=== PATIENT | male | born 1960 | race Caucasian/White ===

== ENCOUNTER 2024-07-16 09:15 | Outpatient (AMB) | payer MEDICARE, SELFPAY ==
--- NOTE | 2024-07-16 09:16 | A.OFFVIS_ITS ---
Vital Signs 07/16/24 09:34 Height 5 ft 8.5 in Weight 160 lb 2 oz BMI 24.0 BP 132/68 Blood Pressure Location Rt brachial Position Sitting Respiration 16 Pulse 73 Pulse Source Pulse Oximeter Pulse Oximetry (%) 98 Oxygen Delivery Method Room Air Intake Visit Reasons: Tremors /seizures Intake Note: Pt presents to the office for new patient consultation for a tremor that started 5 months ago. Sports Complex Attendant Required: No Allergies No Known Allergies Allergy (Verified 07/16/24 09:28) Medication List - Last Reconciled 07/16/24 by Jen Michel MD carbidopa-levodopa 10-100 mg (Sinemet) 1 tab PO TID clopidogrel (Plavix) 75 mg PO DAILY cyanocobalamin (vitamin B-12) 1,000 mcg PO DAILY gabapentin 100 mg PO TID labetalol 200 mg PO BID levetiracetam (Keppra) 500 mg PO BID lisinopril 10 mg PO DAILY metformin 500 mg PO BID simvastatin 40 mg PO DAILY HPI Comments Details: 64y/o male comes for opinion regarding his diagnosis of parkinsons disease.He is accompanied by his . Both the patient and his are poor historians. According to the patient he was diagnosed with Parkinsons about 20 years ago . He started having tremors in his hands.He has h/o bipolar disorder, chronic back pain, opiod dependance CKD HTN CAD Diabetes, exposure to multiple neuroleptics. He was admitted at [facility] on 09/2023 for weakness - was supected to have parkinsons, started on carbidopa/levodopa which helped his tremors. He was also started on keppra for possible seizures. No furthe rhistory was obtainable. He rpeorts fh/o tremors and had a diagnosed of familial tremors until 09/2023 He is not sure if he is taking quetiapine now He denies seizure like episodes. He denies speech issues. But reports trouble walking, feeling off balance and forgetfullness. 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 CAD (coronary artery disease) Shortness of breath Ascending aorta dilatation Thrombosis of vein CKD (chronic kidney disease) Surgical History H/O cardiac catheterization History of appendectomy Previous back surgery H/O heart surgery Family History Father Stroke Social History Alcohol intake: never Patient Tobacco Use Status: Never used Tobacco Physical Exam Vital Signs: Last Vital Signs Pulse 73 07/16/24 09:34 Resp 16 07/16/24 09:34 BP 132/68 07/16/24 09:34 Pulse Ox 98 07/16/24 09:34 Oxygen Delivery Method Room Air 07/16/24 09:34 BMI result Body Mass Index 24.0 Const General: cooperative Nutritional Appearance: average body habitus Orientation/consciousness: patient oriented x3 Eyes Pupils: Equal, round and reactive pupils present Neck Neck: Yes no meningeal signs Neuro Other: moderate to high amplitude tremors - rest postural in UE and LE. Mild decreased blink Normal voice FFM and foot taps normal No cogwheel rigidity Gait- with cane normal stride mild wide base , normal posture. General: patient oriented x3 and no meningeal signs Cranial nerves: Yes Equal, round and reactive pupils present, Yes Bilaterally intact EOM present, Yes Nystagmus not present, Yes Normal facial strength present and Yes Midline tongue present Motor exam (neuro): 5/5 motor strength present throughout and Normal motor muscle tone present throughout Deep tendon reflexes (DTR's): Right triceps reflex intensity grade: 1+, Left triceps reflex intensity grade: 1+, Rt Biceps (C5, C6): 1+, Left biceps reflex intensity grade: 1+, Right brachioradialis reflex intensity grade: 1+, Left brachioradialis reflex intensity grade: 1+, Right patellar reflex intensity grade: 1+ and Left patellar reflex intensity grade: 1+ Coordination: [id number] test normal Assessment & Plan Assessment & Plan (1) Coarse tremors: Comment: / drug induced parkinsonism, familial tremors Code(s): G25.2 - Other specified forms of tremor Category: Medical Plan No clear h/o seizures. I will evaluate him with EEG , MRI brain I will trial him on primidone 50mg tid continue gabapentin 100mg tid sinemet 25/100 tid keppra 500mg bid Orders: Orders EEG electroencephalogram Today G25.2 - Other specified forms of tremor, R56.9 - Unspecified convulsions MR head/brain wo con Today R56.9 - Unspecified convulsions Medications: New primidone 50 mg PO TID 90 tabs 3RF Coding Level of Care Code New Pt Level 4 (05990) Complex EM visit Add On G2211 Diagnoses Coarse tremors G25.2
[2024-07-16 09:34] VITALS: BP 132/68; PULSE 73; RESP 16; O2SAT 98; BMI 24.0
== END 2024-07-16 10:14 | disposition home or self-care (01) ==
PROVIDERS: PCP Family Medicine; Visit Provider Psychiatry & Neurology Neurology
DX: G25.2 Other specified forms of tremor (principal)
CPT/HCPCS: 99204; G2211

== ENCOUNTER → 2024-07-16 09:15 | Outpatient (BNVA) | payer MEDICARE, SELFPAY | PROVIDERS: PCP Family Medicine; Visit Provider Psychiatry & Neurology Neurology | DX: G25.2 Other specified forms of tremor (principal); I12.9 Hypertensive chronic kidney disease with stage 1 through stage 4 chronic kidney disease, or unspecified chronic kidney disease; N18.9 Chronic kidney disease, unspecified; I25.10 Atherosclerotic heart disease of native coronary artery without angina pectoris; R56.9 Unspecified convulsions; M54.50 Low back pain, unspecified | CPT/HCPCS: 99202 ==

== ENCOUNTER 2024-10-07 14:21 | Outpatient (AMB) | payer MEDICARE, SELFPAY ==
[2024-10-07 14:22] VITALS: BMI 24.3
--- NOTE | 2024-10-07 14:22 | MHC.OFFVIS ---
Vital Signs 10/07/24 14:22 Height 5 ft 8.5 in Weight 162 lb BMI 24.3 Intake Visit Reasons: Follow up Parkinson's(ok Per ) Intake Note: patient presents for follow up parkinsons Allergies No Known Allergies Allergy (Verified 10/07/24 14:25) Medication List - Last Reconciled 10/07/24 by Jen Michel MD benztropine 0.5 mg PO DAILY carbidopa-levodopa 10-100 mg (Sinemet) 1 tab PO TID clopidogrel (Plavix) 75 mg PO DAILY cyanocobalamin (vitamin B-12) 1,000 mcg PO DAILY deutetrabenazine (Austedo) 6 mg PO DAILY gabapentin 100 mg PO TID labetalol 200 mg PO BID levetiracetam 750 mg PO BID lisinopril 10 mg PO DAILY metformin 500 mg PO BID primidone 50 mg PO TID simvastatin 40 mg PO DAILY HPI Comments Details: 64y/o male comes for F/u regarding his diagnosis of parkinsons disease.He is accompanied by his . He had another episode of seizure 1 month ago.His MRI brain was normal Mild decrease in tremors He had EEG at [facility] - i do no have the report yet. History from initial visit- Both the patient and his are poor historians. According to the patient he was diagnosed with Parkinsons about 20 years ago . He started having tremors in his hands.He has h/o bipolar disorder, chronic back pain, opiod dependance CKD HTN CAD Diabetes, exposure to multiple neuroleptics. He was admitted at [facility] on 09/2023 for weakness - was supected to have parkinsons, started on carbidopa/levodopa which helped his tremors. He was also started on keppra for possible seizures. No further history was obtainable. He reports fh/o tremors and had a diagnosed of familial tremors until 09/2023 He is not sure if he is taking quetiapine now He denies seizure like episodes. He denies speech issues. But reports trouble walking, feeling off balance and forgetfullness. 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 CAD (coronary artery disease) Shortness of breath Ascending aorta dilatation Thrombosis of vein CKD (chronic kidney disease) Surgical History H/O cardiac catheterization History of appendectomy Previous back surgery H/O heart surgery Family History Father Stroke Social History Alcohol intake: never Patient Tobacco Use Status: Never used Tobacco Physical Exam Vital Signs: BMI result Body Mass Index 24.3 Const General: cooperative Nutritional Appearance: average body habitus Orientation/consciousness: patient oriented x3 Eyes Pupils: Equal, round and reactive pupils present Neck Neck: Yes no meningeal signs Neuro Other: moderate to high amplitude tremors - rest postural in UE and LE. Mild decreased blink Normal voice FFM and foot taps normal No cogwheel rigidity Gait- with cane normal stride mild wide base , normal posture. General: patient oriented x3 and no meningeal signs Cranial nerves: Yes Equal, round and reactive pupils present, Yes Bilaterally intact EOM present, Yes Nystagmus not present, Yes Normal facial strength present and Yes Midline tongue present Motor exam (neuro): 5/5 motor strength present throughout and Normal motor muscle tone present throughout Deep tendon reflexes (DTR's): Right triceps reflex intensity grade: 1+, Left triceps reflex intensity grade: 1+, Rt Biceps (C5, C6): 1+, Left biceps reflex intensity grade: 1+, Right brachioradialis reflex intensity grade: 1+, Left brachioradialis reflex intensity grade: 1+, Right patellar reflex intensity grade: 1+ and Left patellar reflex intensity grade: 1+ Coordination: [id number] test normal Assessment & Plan Assessment & Plan (1) Coarse tremors: Comment: / drug induced parkinsonism, familial tremors Code(s): G25.2 - Other specified forms of tremor Category: Medical (2) Seizures: Code(s): R56.9 - Unspecified convulsions Category: Medical Plan MRI brain - was normal Primidone 50mg tid Continue gabapentin 100mg tid Sinemet 25/100 tid Increase keppra 750mg bid He was started on AUstedo by Dr. Vergara but it costs 1400 for him . He started 2 weeks ago but does not want to refill Medications: Changed From levetiracetam (Keppra) 500 mg PO BID To levetiracetam 750 mg PO BID 60 tabs 6RF Coding Level of Care Code Est Pt Level 4 (09696) Diagnoses Coarse tremors G25.2 Seizures R56.9
== END 2024-10-07 14:55 | disposition home or self-care (01) ==
PROVIDERS: PCP Family Medicine; Visit Provider Psychiatry & Neurology Neurology
DX: G25.2 Other specified forms of tremor (principal); R56.9 Unspecified convulsions
CPT/HCPCS: 99214

== ENCOUNTER → 2024-10-07 14:21 | Outpatient (BNVA) | payer MEDICARE, SELFPAY | PROVIDERS: PCP Family Medicine; Visit Provider Psychiatry & Neurology Neurology | DX: G25.2 Other specified forms of tremor (principal); R56.9 Unspecified convulsions | CPT/HCPCS: 99212 ==

== ENCOUNTER 2024-12-24 09:48 | Outpatient (AMB) | payer MEDICARE, SELFPAY ==
[2024-12-24 09:54] VITALS: BMI 24.9
--- NOTE | 2024-12-24 09:54 | A.OFFVIS_ITS ---
Vital Signs 12/24/24 09:54 Height 5 ft 8.5 in Weight 166 lb BMI 24.9 Intake Visit Reasons: Follow up Parkinson's Intake Note: PATIENT PRESENTS FOR FOLLOW UP Allergies No Known Allergies Allergy (Verified 12/24/24 09:56) Medication List - Last Reconciled 12/24/24 by Jen Michel MD carbidopa-levodopa 10-100 mg (Sinemet) 1 tab PO TID clopidogrel (Plavix) 75 mg PO DAILY cyanocobalamin (vitamin B-12) 1,000 mcg PO DAILY gabapentin 100 mg PO TID labetalol 200 mg PO BID levetiracetam 750 mg PO BID lisinopril 10 mg PO DAILY metformin 500 mg PO BID simvastatin 40 mg PO DAILY HPI Comments Details: 64y/o male comes for F/u regarding his diagnosis of parkinsons disease.He is accompanied by his .he used to be on AUstedo which helped his tremors but his insurance did not cover so he stopped and his tremors have increased. No seizures visit .His MRI brain was normal History from initial visit- Both the patient and his are poor historians. According to the patient he was diagnosed with Parkinsons about 20 years ago . He started having tremors in his hands.He has h/o bipolar disorder, chronic back pain, opiod dependance CKD HTN CAD Diabetes, exposure to multiple neuroleptics. He was admitted at [facility] on 09/2023 for weakness - was supected to have parkinsons, started on carbidopa/levodopa which helped his tremors. He was also started on keppra for possible seizures. No further history was obtainable. He reports fh/o tremors and had a diagnosed of familial tremors until 09/2023 He is not sure if he is taking quetiapine now He denies seizure like episodes. He denies speech issues. But reports trouble walking, feeling off balance and forgetfullness. 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 stenosis 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 CAD (coronary artery disease) Shortness of breath Ascending aorta dilatation Thrombosis of vein CKD (chronic kidney disease) Surgical History H/O cardiac catheterization History of appendectomy Previous back surgery H/O heart surgery Family History Father Stroke Social History Alcohol intake: never Patient Tobacco Use Status: Never used Tobacco Physical Exam Vital Signs: BMI result Body Mass Index 24.9 Const General: cooperative Nutritional Appearance: average body habitus Orientation/consciousness: patient oriented x3 Eyes Pupils: Equal, round and reactive pupils present Neck Neck: Yes no meningeal signs Neuro Other: moderate to high amplitude tremors - rest postural in UE and LE. Mild decreased blink Normal voice FFM and foot taps normal No cogwheel rigidity Gait- with cane normal stride mild wide base , normal posture. General: patient oriented x3 and no meningeal signs Cranial nerves: Yes Equal, round and reactive pupils present, Yes Bilaterally intact EOM present, Yes Nystagmus not present, Yes Normal facial strength present and Yes Midline tongue present Motor exam (neuro): 5/5 motor strength present throughout and Normal motor muscle tone present throughout Coordination: [id number] test normal Assessment & Plan Assessment & Plan (1) Coarse tremors: Comment: / drug induced parkinsonism, familial tremors Code(s): G25.2 - Other specified forms of tremor Category: Medical (2) Seizures: Code(s): R56.9 - Unspecified convulsions Category: Medical Plan MRI brain - was normal Primidone 50mg tid Continue gabapentin 100mg tid Sinemet 25/100 tid Continue keppra 750mg bid Restart Austedo 6 mg bid Medications: New deutetrabenazine (Austedo) 6 mg PO BID 60 tabs 6RF Discontinued primidone Discontinued Reason: Patient no longer taking 50 mg PO TID 90 tabs 3RF Coding Level of Care Code Est Pt Level 4 (55334) Complex EM visit Add On G2211 Diagnoses Coarse tremors G25.2 Seizures R56.9
--- OUTSIDE RECORDS SUMMARY | 2024-12-24 12:51 | XMS_ITS | Data Portability ---
Author Organization [place] [facility], Allergy Address [address] [place] [id number] Care Team Providers Care College Specialist Name Role Phone DANIEL RAMIRES Primary Care Provider Assessment Encounter Date Assessment Date Assessment LastModified by Organization Details LastModified Time 06/23/2024 06/23/2024 Patient with 6 months of loss of smell and taste. Examination shows septal deviation to the left side and bilateral hand tremors. We discussed that the differential diagnosis includes COVID-19 infection that was occult and possibly loss of smell and taste due to Parkinson's disease. I have suggested he continue the nasal steroids Unfortunately I do not think there is much that we can do to get his smell and taste back. He can try smelling angel, eucalyptus and peppermint oil 3 times daily for 15 minutes at a time. He had a CT of the head in July which did not show any sinus disease. He believes he had additional studies at [facility] in [place]. However, will be called over there there were no head or sinus x-rays. He will check with his PCP. I would consider CT scan of the sinuses if no improvement with smell retraining over the next 2 months. [email or web address] Not available 06/23/2024 10:17:40 Plan of Treatment Reminders Order Date Submit Date Provider Last Modified By Organization Details Last Modified Time Details Appointments None record ed. Lab None record ed. Referral None record ed. Procedures None record ed. Surgeries None record ed. Imaging None record ed. Medication Orders None record ed. Patient TargetsNo targets recorded. Patient InstructionsNo instructions recorded. Reason for Referral None Reported. Results Created Date Observation Date Name Description Value Unit Range Abnormal Flag Note LastModifiedBy Organization Detail LastModifiedTime 06/25/2008/28/2023 CT, head + brain , w/o contr ast No observ ation record ed. [email or web address] Not Available 11/2023 13:53:07 06/25/2008/21/2023 CT, head + brain , w/o contr ast No observ ation record ed. [email or web address] Not Available 11/2023 13:54:50 Result Notes None recorded. Problems Name Problem SNOMED Code Status Onset Date Resolution Date Notes Provider Name and Address Organization Details Recorded Time Loss of sense of smell 39417670 Active 024 STEW JERONIMO MD [address] [place] [address], [place], [phone] , [facility] 06/23/2024 09:53:13 Parkinson 's disease 52650398 Active 024 STEW JERONIMO MD [address] [place] [address], [place], [phone] , [facility] 06/23/2024 09:53:17 Problem Notes None recorded. Procedures Surgical History None recorded. Imaging Results Imaging Date Name Status LastModified by Organiz ation Details LastModified Time 08/28/2023 CT, head + brain, w/o contrast completed Information not available 06/25/2024 13:53:07 08/21/2023 CT, head + brain, w/o contrast completed Information not available 06/25/2024 13:54:50 Procedure Notes None recorded. Medical Equipment None Reported. Medications Name Sig Start Date Stop Date Status Note LastModified by Organization Details LastModified Time metformin 500 mg tablet TAKE 2 TABLETS BY MOUTH TWICE A DAY WITH MEALS active Not Available Not Available No t Available labetalol 200 mg tablet TAKE 2 TABLETS BY MOUTH TWICE A DAY active Not Available Not Available No t Available levetiraceta m 500 mg tablet TAKE 1 TABLET BY MOUTH TWICE A DAY active Not Available Not Available No t Available lisinopril 20 mg tablet TAKE 1 TABLET BY MOUTH EVERY DAY active Not Available Not Available No t Available famotidine 40 mg tablet TAKE 1 TABLET BY MOUTH EVERY DAY active Not Available Not Available No t Available clopidogrel 75 mg tablet TAKE 1 TABLET BY MOUTH EVERY DAY active Not Available Not Available No t Available chlorthalido ne 25 mg tablet TAKE 1/2 TABLET BY MOUTH DAILY active Not Available Not Available Not Available allopurinol 100 mg tablet TAKE 1 TABLET DAILY active Not Available Not Available No t Available omeprazole 40 mg capsule,hayes yed release TAKE 1 CAPSULE BY MOUTH EVERY DAY active Not Available Not Available No t Available butalbital-a cetaminophen -caffeine 50 mg-325 mg-40 mg tablet TAKE 2 TABLETS BY MOUTH EVERY 4 HOURS NEEDED. DO NOT EXCEED 6 TABLETS DAILY. active Not Available Not Available No t Available simvastatin 40 mg tablet TAKE 1 TABLET BY MOUTH EVERYDAY AT BEDTIME active Not Available Not Available No t Available famotidine 20 mg tablet TAKE 1 TABLET BY MOUTH TWICE A DAY active Not Available Not Available No t Available magnesium oxide 400 mg (241.3 mg magnesium) tablet TAKE 1 TABLET BY MOUTH 2 TIMES DAILY FOR 360 DAYS. active Not Available Not Available No t Available meclizine 25 mg tablet TAKE 1 TABLET ORALLY EVERY 8 HOURS NEEDED FOR DIZZINESS/V ERTIGO. MAY CAUSE DROWSINESS active Not Available Not Available N ot Available amlodipine 10 mg tablet TAKE 1 TABLET BY MOUTH EVERY DAY active Not Available Not Available No t Available lisinopril 10 mg tablet TAKE 1 TABLET BY MOUTH EVERY DAY active Not Available Not Available No t Available carbidopa 10 mg-levodopa 100 mg tablet TAKE 1 TABLET BY MOUTH THREE TIMES A DAY active Not Available Not Available Not Available lisinopril 30 mg tablet TAKE 1 TABLET BY MOUTH EVERY DAY active Not Available Not Available No t Available mupirocin 2 % topical ointment APPLY TO AFFECTED AREA TWICE A DAY active Not Available Not Available No t Available gabapentin 100 mg capsule TAKE 1 CAPSULE BY MOUTH THREE TIMES A DAY active Not Available Not Available Not Available colchicine 0.6 mg tablet TAKE 1 TABLET BY MOUTH EVERY DAY active Not Available Not Available No t Available perphenazine 8 mg tablet TAKE 1 TABLET BY MOUTH EVERY DAY IN THE EVENING active Not Available Not Available No t Available lisinopril 40 mg tablet TAKE 1 TABLET BY MOUTH EVERY DAY active Not Available Not Available No t Available fluticasone propionate 50 mcg/actuatio n nasal spray,suspen renee SPRAY 2 SPRAYS INTO EACH NOSTRIL EVERY DAY active Not Available Not Available No t Available Vitamin B-12 1,000 mcg tablet TAKE 1 TABLET BY MOUTH EVERY DAY active Not Available Not Available No t Available Januvia 50 mg tablet TAKE 1 TABLET BY MOUTH EVERY DAY active Not Available Not Available No t Available quetiapine ER 50 mg tablet,exten ded release 24 hr TAKE 1 TABLET BY MOUTH EVERY DAY IN THE EVENING active Not Available Not Available No t Available quetiapine ER 150 mg tablet,exten ded release 24 hr TAKE 1 TABLET BY MOUTH EVERY DAY IN THE EVENING active Not Available Not Available No t Available Vitals Date Recorded Body height Body mass index (BMI) Body weight Provider Name and Address Organization Details Last Updated DateTime 06/23/2024 172.72 cm 23.7 kg/m2 23698.41 g Jm Cheung [place] [facility] 06/23/2024 09:37:02 Social History None recorded. Functional Status None recorded. Mental Status None recorded. Family History Nothing Reported. Medical History Condition Response Diabetes Y Anxiety Y Migraines Y Hypertension Y Past Encounters Encounter ID Performer Location Encounter Start Date Encounter Closed Date Diagnosis/Indication Diagnosis SNOMED-CT Code Diagnosis ICD10 Code Diagnosis Note [id number] STEW JERONIMO MD [facility] [address] [phone] 06/23/2024 08:52:57 06/23/2024 10:20:29 Loss of sense of smell 95079475 R43.0 Parkinson's disease 4904 9000 G20.A1 Health Concerns Section Related Observation LastModified by Organization Detai ls LastModified Time None Recorded Concern Status LastModified by Organization Details LastModified Time None Recorded Advance Directives Directive None Recorded Payers Encounter Date Sequence Insurance Name Policy Number Policy Blanc Covered Member ID Blanc Member ID Guarantor Name 06/23/2024 2 [place] [id number] Rock Lucas [id number] Rock Lucas 06/23/2024 1 [place] [employer] Rock Lucas [id number] Rock Lucas Notes Date Note Type Note Provider Name and Address Organization Details Recorded Time 06/23/2024 text/html Patient reports 6 months of loss of smell and taste. He reports his had COVID-19 about 9 months ago. He denies having any infection himself. He does have a history of Parkinson's disease and diabetes. No CP or SOB STEW BYRD MD [address] [place] [address], [place], [phone], [facility] - [facility] 06/23/2024 10:19:19
--- OUTSIDE RECORDS SUMMARY | 2024-12-24 12:51 | XMS_ITS | Clinical Summary ---
Author Organization [facility] Address [address] [place] [address] Care Team Providers Care Cosmetic Chemist Name Role Phone Unavailable Primary Care Provider Unavailabl e Allergies Active Allergy Reactions Criticality Noted Date Comments Ceftriaxone 09/19/2022 Other reaction(s): Dizziness Hydromorphone 03/04/2018 sweating and hives nausous Oxytocin 10/13/2021 Penicillins 12/11/2011 Medications Medication Sig Dispensed Refills Start Date End Date Status labetalol (NORMODYNE) 200 MG tablet Take 2 tablets (400 mg total) by mouth 2 (two) times a day. 0 09/13/2022 Active tadalafil (CIALIS) 5 MG tablet TAKE ONE TABLET BY MOUTH EVERY DAY 0 07/05/2022 Active omeprazole (PriLOSEC) 40 MG capsuleIndications:Bar rett's Esophagus,FOR 15 DAYS ONLY Take 1 capsule (40 mg total) by mouth daily. 0 07/26/2022 Active amLODIPine (NORVASC) tablet 10 mg Take 1 tablet (10 mg total) by mouth daily. 0 07/02/2022 Active chlorthalidone (HYGROTON) 25 MG tablet TAKE 1/2 TABLET BY MOUTH DAILY 0 08/19/2022 Active gabapentin (NEURONTIN) 100 MG capsule Take 1 capsule (100 mg total) by mouth 3 (three) times a day. 0 09/19/2022 Active lisinopril (PRINIVIL,ZESTRIL) tablet 20 mg Take 1 tablet (20 mg total) by mouth daily. 0 08/15/2022 Active metFORMIN (GLUCOPHAGE) tablet 500 mg TAKES 2 TABLETS IN THE AM 1 TABLET AT 4PM 0 08/13/2022 Active risperiDONE (RisperDAL) 0.5 MG tablet Take 1 tablet (0.5 mg total) by mouth daily. 0 Active propranolol (INDERAL) 40 MG tablet Take 1 tablet (40 mg total) by mouth 2 (two) times a day. 0 Active escitalopram (LEXAPRO) 20 MG tablet Take 1 tablet (20 mg total) by mouth daily. 0 Active clonazePAM (KlonoPIN) 1 MG tablet Take 1 tablet (1 mg total) by mouth 3 (three) times a day as needed for anxiety. 0 Active Active Problems Problem Noted Date Diagnosed Date Stroke, small vessel 09/20/2022 TIA (transient ischemic attack) 09/19/2022 Dizziness 09/19/2022 Family History Medical History Relation Name Comments No Sig Med Hx Mother Relation Name Status Comments Father Mother Alive Social History Tobacco Use Types Packs/Day Years Used Date Smoking Tobacco: Never Smokeless Tobacco: Never Tobacco Cessation:Counseling Given: Not Answered Alcohol Use Standard Drinks/Week Comments Not Currently 0 (1 standard drink = 0.6 oz pur e alcohol) Sex and Gender Information Value Date Recorded Sex Assigned at Male 09/19/2022 12:56 PM EDT Gender Identity Not on file Sexual Orientation Not on file Job Start Date Occupation Industry Not on file Not on file Not on file Last Filed Vital Signs Vital Sign Reading Time Taken Comments Blood Pressure 134/113 09/22/2022 9:47 AM EDT Pulse 102 09/22/2022 9:47 AM EDT Temperature 36.7 ??C (98 ??F) 09/22/2022 4:37 AM EDT Respiratory Rate 18 09/22/2022 4:37 AM EDT Oxygen Saturation 96% 09/22/2022 4:37 AM EDT Inhaled Oxygen Concentration - - Weight 87.3 kg (192 lb 6.4 oz) 09/19/2022 7:25 P M EDT Height 177.8 cm (5' 10 ) 09/19/2022 7:25 PM EDT Body Mass Index 27.61 09/19/2022 7:25 PM EDT Plan of Treatment Health Maintenance Due Date Last Done Comments Hepatitis C Screening 1959 Depression Screening 1971 BMI Counseling 1977 Preventative Health Evaluation 1977 Colon Cancer Screening (Colonoscopy) 2004 Shingrix-Zoster Vaccine (1 of 2) 2009 DTap / Tdap / Td (2 - Tdap) 12/13/2021 12/13/2011 Fall Risk Assessment 2024 Pneumococcal Vaccine (1 of 1 - PCV) 2024 COVID-19 Vaccine (2023- season) 2024 09/06/2021, 02/09/2021, 01/19/2021 Influenza Vaccine (#1) 2024 , 09/25/2020, 08/04/2019, Additional history exists RSV Adult > 60+ Yrs or (1 - 1-dose 75+ series) 2034 Hepatitis B Vaccines Aged Out No long er eligible based on patient's age to complete this topic Pneumococcal Vaccine Aged Out No long er eligible based on patient's age to complete this topic RSV Ped < 20 months Aged Out No longe r eligible based on patient's age to complete this topic Advance Directives For more information, please contact: [phone] Latest Code Status on File Code Status Date Activated Date Inactivated Comments Full Code 09/19/2022 2:37 PM 09/23/2022 12:01 AM Th is code status was ascertained in the following way: As per discussion with patient .
--- OUTSIDE RECORDS SUMMARY | 2024-12-24 12:52 | XMS_ITS | Clinical Summary ---
Author Organization [facility] Address [address] [facility] [address] [place] [address] Phone Care Team Providers Care Mannequin Molder Name Role Phone Yvette Colon MD Primary Care Provider Unavaila ble Allergies Active Allergy Reactions Criticality Noted Date Comments Benztropine 12/06/2022 Ceftriaxone 09/25/2022 Hydromorphone 09/25/2022 Lamotrigine 12/06/2022 Oxytocin 10/13/2021 Penicillins 12/11/2011 Medications carbidopa-levod opa (SINEMET) 10-100 MG per tablet Take 1 tablet by mouth in the morning and 1 tablet at noon and 1 tablet in the evening. Active clopidogrel (PLAVIX) 75 MG tablet Take 75 mg by mouth 1 (one) time each day Active cyanocobalamin (VITAMIN B-12) 1000 MCG tablet Take 1,000 mcg by mouth 1 (one) time each day Active gabapentin (NEURONTIN) 100 MG capsule Take 1 capsule by mouth in the morning and 1 capsule at noon and 1 capsule in the evening. 09/19/2022 Active labetalol (NORMODYNE) 200 MG tablet Take 2 tablets by mouth in the morning and 2 tablets in the evening. 09/13/2022 Active levETIRAcetam (KEPPRA) 500 MG tablet Take 1 tablet by mouth in the morning and 1 tablet in the evening. 11/19/2023 Active metFORMIN (GLUCOPHAGE) 500 MG tablet Take 500 mg by mouth 1 (one) time each day with dinner 08/13/2022 Active omeprazole (PriLOSEC) [address] capsule Take 40 mg by mouth 07/26/2022 Active allopurinol (ZYLOPRIM) 100 MG tablet Take 100 mg by mouth 1 (one) time each day Active lisinopril 40 MG tablet Take 40 mg by mouth 1 (one) time each day Active primidone (MYSOLINE) 50 MG tablet Take 50 mg by mouth in the morning and 50 mg in the evening and 50 mg before bedtime. Active perphenazine 8 MG tablet Take 8 mg by mouth 1 (one) time each day with dinner Active benztropine (COGENTIN) 0.5 MG tablet Take 0.5 mg by mouth 1 (one) time each day with dinner Active atorvastatin (LIPITOR) 40 MG tablet Take 40 mg by mouth 1 (one) time each day with dinner Active magnesium oxide (MAG-OX) 400 MG tablet Take 400 mg by mouth 12/24/2023 12/18/19 25 Active Problems Problem Noted Date Diagnosed Date Chronic kidney disease, stage 2 (mild) Cerebral atherosclerosis 09/25/2022 Type 2 diabetes mellitus 11/25/2021 TIA 11/25/2021 Parkinson's disease 11/25/2021 Orthostatic hypotension 11/25/2021 Migraine, not intractable, without status migrai nosus 11/25/2021 care home current use of oral hypoglycemic drug 11/25/2021 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 11/25/2021 Hyperlipidemia 11/25/2021 History of falling 11/25/2021 Gastro-esophageal reflux disease without esophag itis 11/25/2021 Essential hypertension 11/25/2021 Depressive disorder 11/25/2021 Nonruptured cerebral aneurysm 11/25/2021 Benign prostatic hyperplasia without lower urinary tract symptom 11/25/2021 Anxiety disorder 11/25/2021 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 11/25/2021 Encounters Date Type Department Care Team Description 11/27/2024 Orders Only [facility] [address] [place] [id number] Bipin Newberry MD Chronic kidney disease, stage 2 (mild); Other acute kidney failure (HCC) 10/30/2024 Orders Only [facility] [address] [place] [id number] Bipin Newberry MD Chronic kidney disease, stage 2 (mild); Other acute kidney failure (HCC) 10/02/2024 Orders Only [facility] [address] [facility] [address] [place] [phone] Bipin Newberry MD Chronic kidney disease, stage 2 (mild); Other acute kidney failure (HCC) from Last 3 Months Family History Medical History Relation Comments Heart disease Mother Hypertension Mother Relation Status Comments Mother Social History Tobacco Use Types Packs/Day Years Used Date Smoking Tobacco: Never Smokeless Tobacco: Never Tobacco Cessation:Counseling Given: Not Answered Alcohol Use Standard Drinks/Week Comments Never 0 (1 standard drink = 0.6 oz pur e alcohol) Sex and Gender Information Value Date Recorded Sex Assigned at Not on file Legal Sex Male 10:57 AM EST Gender Identity Not on file Sexual Orientation Not on file Last Filed Vital Signs Vital Sign Reading Time Taken Comments Blood Pressure 128/90 09/07/2024 10:34 AM EDT Pulse 69 09/07/2024 10:34 AM EDT Temperature - - Respiratory Rate - - Oxygen Saturation 98% 09/07/2024 10:34 AM EDT Inhaled Oxygen Concentration - - Weight 76.7 kg (169 lb) 09/07/2024 10:34 AM EDT Height - - Body Mass Index - - Plan of Treatment Upcoming Encounters Date Type Department Care Team (Late st Contact Info) Description 03/02/2025 1:30 PM EDT Office Visit [facility] [address] [facility] [address] [place] [phone] Bipin Newberry MD [address] [facility] [address] [place] [id number] Health Maintenance Due Date Last Done Comments Colorectal Cancer Screening: Annual FOBT 2008 Colorectal Cancer Screening: Colonoscopy 2008 Colorectal Cancer Screening: Sigmoidoscopy 2008 Hepatitis B Vaccine (1 of 3 - Risk 3-dose series) 2019 Diabetes: Ophthalmology Exam 01/21/2024 Diabetes: Pedal Pulse Checked 01/21/2024 Diabetes: Sensory Foot Exam 01/21/2024 Diabetes: Visual Foot Exam 01/21/2024 Pneumococcal Vaccine: 65+ Ye ars (2 of 2 - PCV) 02/19/2024 05/13/2024, 02/18/2023 Pneumococcal Vaccine: Pediat rics (0 to 5 Years) and At-Risk Patients (6 to 64 Years) (2 of 2 - PCV) 02/19/2024 05/13/2024, 02/18/2023 Diabetes: Hemoglobin A1C 08/13/2024 024, 01/10/2024, 09/19/2022 Influenza Vaccine Completed 08/13/2024, , 09/25/2020, Additional history exists Insurance MEDICARE [facility] MEDICARE [facility] Care Teams Mannequin Molder Relationship Specialty Start Date End Date Yvette Colon MD PCP - General Family Medicine 09/07/24
--- OUTSIDE RECORDS SUMMARY | 2024-12-24 12:52 | XMS_ITS | Clinical Summary ---
Author Organization [facility] Address [address] [place] [address] Phone Care Team Providers Care M[employer]asting Name Role Phone Juliette Barbosamana Primary Care Provider [phone] Allergies Active Allergy Reactions Criticality Noted Date Comments Ceftriaxone 09/19/2022 Other reaction(s): Dizziness Hydromorphone 03/04/2018 sweating and hives nausous Oxytocin 10/13/2021 Penicillins 12/11/2011 Medications Medication Sig Dispensed Refills Start Date End Date Status gabapentin (NEURONTIN) 100 mg capsule Take 1 capsule (100 mg total) by mouth 3 times daily. 09/19/2022 Active magnesium oxide (MAG-OX) 400 mg (241.3 elemental magnesium) tablet TAKE 1 TABLET BY MOUTH 2 TIMES DAILY FOR 360 DAYS. 180 tablet 10/26/2024 Active Additional Information Patient not taking.Reported on 11/10/2024 metFORMIN (GLUCOPHAGE) 500 mg tablet TAKE 2 TABLETS BY MOUTH TWICE A DAY WITH MEALS 360 tablet 11/10/2024 Active clopidogreL (PLAVIX) 75 mg tabletIndications:Mi xed hyperlipidemia Take 1 tablet (75 mg total) by mouth 1 (one) time each day. Active cyanocobalamin (VITAMIN B-12) 1,000 mcg tablet Take 1 tablet (1,000 mcg total) by mouth 1 (one) time each day. Active levETIRAcetam (KEPPRA) 500 mg tablet Take 1 tablet (500 mg total) by mouth 2 (two) times a day. Active famotidine (PEPCID) 40 mg tablet Take 1 tablet (40 mg total) by mouth 1 (one) time each day. 10/24/2024 Active labetaloL (NORMODYNE) 200 mg tabletIndications:Pr imary hypertension Take 1 tablet (200 mg total) by mouth 2 (two) times a day. 180 each 1 11/10/2024 5 Active lisinopril (PRINIVIL,ZESTRIL) 40 mg tabletIndications:Pr imary hypertension Take 1 tablet (40 mg total) by mouth 1 (one) time each day. 90 each 1 11/10/2024 5 Active atorvastatin (LIPITOR) 40 mg tabletIndications:Mi xed hyperlipidemia Take 1 tablet (40 mg total) by mouth at bedtime. at bedtime. 90 each 1 11/10/2024 5 Active sildenafiL (VIAGRA) 50 mg tabletIndications:Er ectile dysfunction, unspecified erectile dysfunction type Take 1 tablet (50 mg total) by mouth 1 (one) time each day if needed for erectile dysfunction. 12 tablet 3 11/10/2024 Active amLODIPine (NORVASC) 5 mg tabletIndications:Pr imary hypertension Take 1 tablet (5 mg total) by mouth 1 (one) time each day. 90 each 1 11/10/2024 5 Active carbidopa-levodopa (SINEMET) 10-100 mg per tablet Take 1 tablet by mouth 3 (three) times a day. 270 tablet 1 11/19/2024 Active Active Problems Problem Noted Date Diagnosed Date Stroke, small vessel 09/20/2022 Dizziness 09/19/2022 Transient ischemic attack 11/25/2021 Encounters Date Type Department Care Team Description 11/10/2024 2:45 PM EST Office Visit [facility] [address] [place] [phone] Mary Yap NP Parkinson's disease, unspecified whether dyskinesia present, unspecified whether manifestations fluctuate (CMS/HCC) (Primary Dx); Seizure (CMS/HCC); Primary hypertension; Type 2 diabetes mellitus without complication, without long-term current use of insulin (CMS/HCC); Mixed hyperlipidemia; Erectile dysfunction, unspecified erectile dysfunction type; Lump of skin 10/05/2024 [facility] [address] [place] [address] Chloe Vergara MD Epilepsy, unspecified, not intractable, without status epilepticus (CMS/HCC) 10/02/2024 [facility] [address] [place] [address] Chloe Vergara MD Epilepsy, unspecified, not intractable, without status epilepticus (CMS/HCC) 10/01/2024 [facility] [address] [place] [address] Chloe Vergara MD Epilepsy, unspecified, not intractable, without status epilepticus (CMS/HCC) from Last 3 Months Surgical History Surgery Date Site/Laterality Comments APPENDECTOMY PROCEDURE: MT APPENDECTOMY CHOLECYSTECTOMY PROCEDURE: MT LAPAROSCOPY SURG CHOLECYSTECTOMY Medical History Medical History Date Comments Acne rosacea 02/28/2016 DX:Acne rosacea Benign familial tremor 02/17/2018 DX:Benign familial tremor Benign prostatic hyperplasia 10/20/2013 DX: Benign prostatic hyperplasia Bipolar disorder (CMS/HCC) 02/09/2014 DX:Bi polar disorder ([facility]) Chronic constipation 02/28/2016 DX:Chronic constipation DDD (degenerative disc disease), lumbar 06/25/2018 DX:DDD (degenerative disc disease), lumbar DJD (degenerative joint disease) 02/27/2018 DX:DJD (degenerative joint disease) Eczema 10/20/2013 DX:Eczema Erectile dysfunction 06/12/2013 DX:Erectile dysfunction Excessive sweating 06/09/2018 DX:Excessive sweating GERD without esophagitis 09/29/2015 DX:GERD without esophagitis Gout 03/31/2010 DX:Gout Hearing loss 05/11/2014 DX:Hearing loss Hypercholesterolemia 02/17/2018 DX:Hypercho lesterolemia Hypertension 02/17/2018 DX:Hypertension Migraine, unspecified, not i ntractable, without status migrainosus 02/27/2018 DX:Migraine, unspecified, n ot intractable, without status migrainosus Movement disorder 06/09/2018 DX:Movement di sorder Opioid dependence, continuous (CMS/HCC) 02/27/2018 DX:Opioid dependence, continuous ([facility]) Polyp of sigmoid colon 02/10/2015 DX:Polyp of sigmoid colon Radial styloid tenosynovitis (de quervain) 02/27/2018 DX:Radial styloid tenosynovi tis (de quervain) Spondylosis, lumbosacral 02/27/2018 DX:Spon dylosis, lumbosacral Steatohepatitis, non-alcoholic 06/12/2017 D X:Steatohepatitis, non-alcoholic Type 2 diabetes mellitus wit h peripheral vascular disease (CMS/HCC) 08/18/2018 DX:Type 2 diabetes mellitus with peripheral vascular disease (HCC) Anxiety state DX:Anxiety state Asthma DX:Asthma Social History Tobacco Use Types Packs/Day Years Used Date Smoking Tobacco: Never Smokeless Tobacco: Never Tobacco Cessation:Counseling Given: Not Answered Alcohol Use Standard Drinks/Week Comments No 0 (1 standard drink = 0.6 oz pur e alcohol) Sex and Gender Information Value Date Recorded Sex Assigned at Not on file Gender Identity Not on file Sexual Orientation Not on file Job Start Date Occupation Industry Not on file Not on file Not on file Obstetrics History Last Filed Vital Signs Vital Sign Reading Time Taken Comments Blood Pressure 152/96 11/10/2024 2:57 PM EST Pulse 84 11/10/2024 2:57 PM EST Temperature - - Respiratory Rate - - Oxygen Saturation - - Inhaled Oxygen Concentration - - Weight 73 kg (160 lb 14.4 oz) 11/10/2024 2:57 PM EST Height 175.3 cm (5' 9 ) 11/10/2024 2:57 PM EST Body Mass Index 23.76 11/10/2024 2:57 PM EST Plan of Treatment Upcoming Encounters Date Type Department Care Team (Late st Contact Info) Description 03/12/2025 9:30 AM EDT Office Visit [facility] - [facility] [address] [place] [phone] Mary Yap NP [address] [place] [phone] Health Maintenance Due Date Last Done Comments Diabetes: Annual Foot Exam 1969 Hepatitis A Vaccines (1 of 2 - Risk 2-dose series) 1978 Hepatitis B Vaccines (1 of 3 - Risk 3-dose series) 2019 RSV Immunization Patients 60+ Years Old (1 - Risk 60-74 years 1-dose series) 2019 Colorectal Cancer Screening: Colonoscopy 10/28/2022 Depression Screening 10/28/2022 Hepatitis C Screening 10/28/2022 Medicare Annual Wellness Visit 10/28/2022 Social Influencers of Health Screening 10/28/2022 Falls Risk Assessment 2024 COVID-19 Vaccine ( season) 2024 08/28/2024, 09/18/2022, 09/06/2021, Additional history exists Diabetes: Blood Sugar Control Test (HGBA1C) 05/11/2025 11/10/2024, 05/13/2024, 09/19/2022, Additional history exists Diabetes: Annual Urine Albumin-Creatinine Ratio (uACR) 11/10/2025 11/10/2024 Diabetes: Annual GFR (Glomerular Filtration Rate) 11/10/2025 11/10/2024, 09/19/2022, 09/19/2022, Additional history exists Diabetes: Annual Retina Eye Exam 11/10/2025 11/10/2024 Hypertension/CHF/CAD Annual BMP Blood Test 11/10/2025 11/10/2024, 09/19/2022, 09/19/2022, Additional history exists Cholesterol Screening (Lipid Panel) 11/10/2029 11/10/2024, 09/20/2022, 09/20/2022, Additional history exists DTaP,Tdap,and Td Vaccines (4 - Td or Tdap) 08/21/2033 08/21/2023, 02/18/2023, 12/13/2011 Pneumococcal Vaccine: 65+ Years Completed 05/13/2024, 02/18/2023 Pneumococcal Vaccine: Pediatrics (0 to 5 Years) and At-Risk Patients (6 to 64 Years) Completed 05/13/2024, 02/18/2023 Influenza Vaccine Completed 08/13/2024, , 09/18/2022, Additional history exists Zoster Vaccines Completed 08/28/2024, 05/01/2024 HIB Vaccines Aged Out No longer eligi ble based on patient's age to complete this topic HPV Vaccines Aged Out No longer eligi ble based on patient's age to complete this topic IPV Vaccines Aged Out No longer eligi ble based on patient's age to complete this topic MMR Vaccines Aged Out No longer eligi ble based on patient's age to complete this topic Meningococcal ACWY Vaccine Aged Out N o longer eligible based on patient's age to complete this topic RSV Immunization Patients Under 20 months Aged Out No longer eligible based on patient's age to complete this topic Varicella Vaccines Aged Out No longer eligible based on patient's age to complete this topic Procedures Procedure Name Priority Date/Time Associated Diagnosis Comments HEMOGLOBIN A1C Routine 11/10/2024 3:38 PM EST Type 2 diabetes mellitus without complication, without long-term current use of insulin ([facility]) COMPREHENSIVE METABOLIC PANEL Routine 11/10/2024 3:38 PM EST Mixed hyperlipidemia LIPID PANEL WITH REFLEX TO DIRECT LDL Routine 11/10/2024 3:38 PM EST Mixed hyperlipidemia MICROALBUMIN CREATININE URINE RATIO Routine 11/10/2024 3:38 PM EST Type 2 diabetes mellitus without complication, without long-term current use of insulin ([facility]) from Last 3 Months Results * Lipid panel with reflex to direct LDL (11/10/2024 3:38 PM EST) Cholesterol 122 0 - 200 mg/dL LAB CHEMISTRY METHOD 11/10/2024 6:50 PM [facility] Triglycerides 147 0 - 150 mg/dL LAB CHEMISTRY METHOD 11/10/2024 6:50 PM [facility] HDL 44 >=40 mg/dL LAB CHEMISTRY METHOD 11/10/2024 6:50 PM [facility] LDL Calculated 49 0 - 100 mg/dL LAB CHEMISTRY METHOD 11/10/2024 6:50 PM [facility] VLDL Cholesterol Kwasi 29.4 mg/dL LAB CHEMISTRY METHOD 11/10/2024 6:50 PM [facility] Non HDL Chol. (LDL+VLDL) 78 <145 mg/dL LAB CHEMISTRY METHOD 11/10/2024 6:50 PM [facility] Chol/HDL Ratio 2.8 0.0 - 4.4 LAB CHEMISTRY METHOD 11/10/2024 6:50 PM EST [facility] Blood Venous blood specimen / Unknown Venipuncture / Unknown 11/10/2024 3:38 PM EST 11/10/2024 3:38 PM EST Mary Yap NP LAB BLOOD ORDERABLES Performing Organization Address City/[facility]/ZIP Co de Phone Number [facility] [address] [place] [address], [place] [phone] * (ABNORMAL) Microalbumin creatinine urine ratio (11/10/2024 3:38 PM EST) Creatinine, Urine 119.0 mg/dL LAB CHEMISTRY METHOD 11/10/2024 7:08 PM [facility] Microalb, Ur 290.0(H) 0.0 - 29.0 mg/L LAB CHEMISTRY METHOD 11/10/2024 7:08 PM [facility] Microalb/Crea t Ratio 244(H) <30 mg/g creat LAB CHEMISTRY METHOD 11/10/2024 7:08 PM EST [facility] Urine Urine specimen obtained by clean catch procedure / Unknown Non-blood Collection / Unknown 11/10/2024 3:38 PM EST 11/10/2024 3:38 PM EST Mary Yap NP LAB URINE ORDERABLES Performing Organization Address City/[facility]/ZIP Co de Phone Number [facility] [address] [place] [address], [place] [phone] * (ABNORMAL) Hemoglobin A1c (11/10/2024 3:38 PM EST) Hemoglobin A1C 6.5(H) <6.5 % LAB CHEMISTRY METHOD 11/11/2024 9:56 AM EST [facility] Mean Bld Glu Estim. 140 mg/dL LAB CHEMISTRY METHOD 11/11/2024 9:56 AM [facility] Blood Venous blood specimen / Unknown Venipuncture / Unknown 11/10/2024 3:38 PM EST 11/10/2024 3:38 PM EST Mary Yap NP LAB BLOOD ORDERABLES [facility] [address] [place] [address], * (ABNORMAL) Comprehensive metabolic panel (11/10/2024 3:38 PM EST) Pathologist [facility] Sodium 143 133 - 145 mmol/L LAB CHEMISTRY METHOD 11/10/2024 6:50 PM [facility] Potassium 4.2 3.5 - 5.5 mmol/L LAB CHEMISTRY METHOD 11/10/2024 6:50 PM [facility] Chloride 107 96 - 110 mmol/L LAB CHEMISTRY METHOD 11/10/2024 6:50 PM [facility] CO2 27 21 - 32 mmol/L LAB CHEMISTRY METHOD 11/10/2024 6:50 PM [facility] Anion Gap 9 3 - 11 LAB CHEMISTRY METHOD 11/10/2024 6:50 PM [facility] Glucose 108(H) 70 - 100 mg/dL LAB CHEMISTRY METHOD 11/10/2024 6:50 PM [facility] BUN 30(H) 5 - 25 mg/dL LAB CHEMISTRY METHOD 11/10/2024 6:50 PM [facility] Creatinine 1.24 0.70 - 1.30 mg/dL LAB CHEMISTRY METHOD 11/10/2024 6:50 PM [facility] eGFR 65 >=60 mL/min/1. 73m2 LAB CHEMISTRY METHOD 11/10/2024 6:50 PM [facility] Comment:Calculation based on the??Chronic Kidney Disease Epidemiology Collaboration (CKD-EPI) equation refit??without adjustment for race. BUN/Creatinine Ratio 24.2 LAB CHEMISTRY METHOD 11/10/2024 6:50 PM EST [facility] Calcium 10.0 8.5 - 10.5 mg/dL LAB CHEMISTRY METHOD 11/10/2024 6:50 PM EST [facility] AST (SGOT) 13 10 - 42 unit/L LAB CHEMISTRY METHOD 11/10/2024 6:50 PM [facility] ALT (SGPT) 13 10 - 60 unit/L LAB CHEMISTRY METHOD 11/10/2024 6:50 PM [facility] Alkaline Phosphatase 96 42 - 121 unit/L LAB CHEMISTRY METHOD 11/10/2024 6:50 PM [facility] Total Protein 7.4 6.0 - 8.0 g/dL LAB CHEMISTRY METHOD 11/10/2024 6:50 PM [facility] Albumin 4.2 3.2 - 5.0 g/dL LAB CHEMISTRY METHOD 11/10/2024 6:50 PM [facility] Total Bilirubin 0.4 0.0 - 1.4 mg/dL LAB CHEMISTRY METHOD 11/10/2024 6:50 PM [facility] Blood Venous blood specimen / Unknown Venipuncture / Unknown 11/10/2024 3:38 PM EST 11/10/2024 3:38 PM EST Mary Yap NP LAB BLOOD ORDERABLES [facility] [address] [place] [address], from Last 3 Months Advance Directives Documents on File Type Date Recorded Patient Siphoner Expl anation Health Care Decision (hx) 10/14/2023 AD MORALES DIRECTIVE Health Care Decision (hx) 05/30/2020 AD MORALES DIRECTIVE Health Care Decision (hx) 05/30/2020 AD MORALES DIRECTIVE Health Care Decision (hx) 05/30/2020 AD MORALES DIRECTIVE Health Care Decision (hx) 05/30/2020 AD MORALES DIRECTIVE Health Care Decision (hx) 05/30/2020 AD MORALES DIRECTIVE Health Care Decision (hx) 05/30/2020 AD MORALES DIRECTIVE Health Care Decision (hx) 05/30/2020 AD MORALES DIRECTIVE Health Care Decision (hx) 05/30/2020 AD MORALES DIRECTIVE Health Care Decision (hx) 05/30/2020 AD MORALES DIRECTIVE Health Care Decision (hx) 05/30/2020 AD MORALES DIRECTIVE Health Care Decision (hx) 05/30/2020 AD MORALES DIRECTIVE Health Care Decision (hx) 05/30/2020 AD MORALES DIRECTIVE Health Care Decision (hx) 05/30/2020 AD MORALES DIRECTIVE Health Care Decision (hx) 05/30/2020 AD MORALES DIRECTIVE Health Care Decision (hx) 05/30/2020 AD MORALES DIRECTIVE Health Care Decision (hx) 05/30/2020 AD MORALES DIRECTIVE Care Teams [employer] Relationship Specialty Start Date End Date Jessika Barbosa DO [address] [facility] [place] [address] PCP - General Internal Medicine 11/10/24
--- OUTSIDE RECORDS SUMMARY | 2024-12-24 12:52 | XMS_ITS | Encounter Summary ---
Author Organization [facility] Address [address] [facility] [address] [place] [address] Phone Care Team Providers Care Orthotics Technician Name Role Phone Yvette Colon MD Primary Care Provider Nanette duggan Encounter Details Date Type Department Care Team (Late st Contact Info) Description 11/27/2024 Orders Only [facility] [address] [place] [address] Bipin Newberry MD [address] [address] Chronic kidney disease, stage 2 (mild); Other acute kidney failure (HCC) Social History Tobacco Use Types Packs/Day Years Used Date Smoking Tobacco: Never Smokeless Tobacco: Never Alcohol Use Standard Drinks/Week Comments Never 0 (1 standard drink = 0.6 oz pur e alcohol) Sex and Gender Information Value Date Recorded Sex Assigned at Not on file Legal Sex Male 10:57 AM EST Gender Identity Not on file Sexual Orientation Not on file documented as of this encounter Plan of Treatment Upcoming Encounters Date Type Department Care Team (Late st Contact Info) Description 03/02/2025 1:30 PM EDT Office Visit [facility] [address] [address] Bipin Newberry MD [address] [address] documented as of this encounter Visit Diagnoses Diagnosis Chronic kidney disease, stage 2 (mild) Other acute kidney failure (HCC) documented in this encounter Care Teams Orthotics Technician Relationship Specialty Start Date End Date Yvette Colon MD PCP - General Family Medicine 09/07/24 documented as of this encounter
== END 2024-12-24 10:24 | disposition home or self-care (01) ==
PROVIDERS: PCP Family Medicine; Visit Provider Psychiatry & Neurology Neurology
DX: G25.2 Other specified forms of tremor (principal); R56.9 Unspecified convulsions
CPT/HCPCS: 99214; G2211

== ENCOUNTER → 2024-12-24 09:48 | Outpatient (BNVA) | payer MEDICARE, SELFPAY | PROVIDERS: PCP Family Medicine; Visit Provider Psychiatry & Neurology Neurology | DX: G25.2 Other specified forms of tremor (principal); R56.9 Unspecified convulsions | CPT/HCPCS: 99212 ==

== ENCOUNTER 2025-02-17 10:21 | Outpatient (AMB) | payer MEDICARE, SELFPAY ==
[2025-02-17 10:27] VITALS: PULSE 81; O2SAT 98; BMI 25.2
--- NOTE | 2025-02-17 10:27 | A.OFFVIS_ITS ---
Vital Signs 02/17/25 10:27 Height 5 ft 8.5 in Weight 168 lb 6 oz BMI 25.2 Pulse 81 Pulse Source Pulse Oximeter Pulse Oximetry (%) 98 Oxygen Delivery Method Room Air Intake Visit Reasons: Follow up 2mo Intake Note: Patient presents for 2 month follow up for Parkinson's medication Accompanied by: Spouse Allergies No Known Allergies Allergy (Verified 12/24/24 09:56) HPI Comments Details: 64y/o r. handed male is here for a f/u of Parkinsons disease. Interval Medical History: He is accompanied by his Miesha. He used to be on Austedo which helped decrease his tremors but his insurance did not cover it so he stopped and his tremors have increased. He denies seizures. He is still having coarse tremors despite taking the Austedo 6mg PO BID. He starts to shake and says the medications wears off in 4 hours, he takes his second dose at 4 pm. He is also taking CD/LD TID, however it didn't occur to him to take this medicat ion 3 times a day, he seemed a bit confused, explained to him this medication needs to be taken without meat products, and he is eating fruits and more salads. He has been having difficulty with swallowing and chewing and this continues to impact his quality of life and mood. He says he plans to see a dentist. He gets meals from meals on wheels daily. He completes all his ADLs with his 's help, can dress himself and bathe himself. He denies falls. He walks with a cane as he continues to have gait and balance difficulties, he does not climb stairs. He has constipation, takes miralax and has BM every 3 days with hard stools. He doesn't like to be around people as he feels overstimulated. His mood is irritable, he ruminates, and says he starts to spiral, he has a therapist whom he sees ever 2 weeks, for anxiety. His memory is poor, difficulty with doing math, forgets task, appointments, and writes everything down, he does not drive. At [facility] the Psychiatrist manages the gabapentin 100mg TID and Keppra 750mg PO BID. History from initial visit- Both the patient and his are poor historians. According to the patient he was diagnosed with Parkinsons about 20 years ago . He started having tremors in his hands.He has h/o bipolar disorder, chronic back pain, opiod dependance CKD HTN CAD Diabetes, exposure to multiple neuroleptics. He was admitted at [facility] on 09/2023 for weakness - was supected to have Parkinsons, started on carbidopa/levodopa which helped his tremors. He was also started on keppra for possible seizures. No further history was obtainable. He reports fh/o tremors and had a diagnosed of familial tremors until 09/2023 He is not sure if he is taking quetiapine. He denies seizure like episodes. He denies speech issues. But reports trouble walking, feeling off balance and forgetfullness. 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 stenosis 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 CAD (coronary artery disease) Shortness of breath Ascending aorta dilatation Thrombosis of vein CKD (chronic kidney disease) Surgical History H/O cardiac catheterization History of appendectomy Previous back surgery H/O heart surgery Family History Father Stroke Social History Alcohol intake: never Patient Tobacco Use Status: Never used Tobacco Review of Systems Const All systems reviewed & are unremarkable except as noted in HPI and below Physical Exam Vital Signs: Last Vital Signs Pulse 81 02/17/25 10:27 Pulse Ox 98 02/17/25 10:27 Oxygen Delivery Method Room Air 02/17/25 10:27 BMI result Body Mass Index 25.2 Const General: cooperative Nutritional Appearance: average body habitus Orientation/consciousness: patient oriented x3 Eyes Pupils: Equal, round and reactive pupils present Neck Neck: Yes no meningeal signs Neuro Other: moderate to high amplitude tremors - rest postural in UE and LE. Mild decreased blink Normal voice FFM and foot taps normal No cogwheel rigidity Gait- with cane normal stride mild wide base , normal posture. General: patient oriented x3 and no meningeal signs Cranial nerves: Yes Equal, round and reactive pupils present, Yes Bilaterally intact EOM present, Yes Nystagmus not present, Yes Normal facial strength present and Yes Midline tongue present Motor exam (neuro): 5/5 motor strength present throughout and Normal motor muscle tone present throughout Coordination: [id number] test normal Results Reviewed Results Reviewed: [facility]: MRI brain 07/[address] Brain July 24. MRI is WNL, with mild cortical volume loss, minimal periventricular and subcortical small vessel ischemic white matter changes in the bilateral cerebral hemisphere, appropriate for age. No evidence of prior hemorrhage, mild prominence of the ventricles is stable and likely represetns minimal ex vacuo dilatation. [facility]: EEG Study 07/2024 within Normal Limits with continuous eye flutter artifacts. No seizures are seen. Assessment & Plan Assessment & Plan (1) Fatigue due to sleep pattern disturbance: Code(s): R53.83 - Other fatigue; G47.9 - Sleep disorder, unspecified Category: Medical (2) Coarse tremors: Comment: / drug induced parkinsonism, familial tremors Code(s): G25.2 - Other specified forms of tremor Category: Medical (3) Abnormality of gait due to impairment of balance: Code(s): R26.89 - Other abnormalities of gait and mobility Category: Medical Plan Coarse Tremors Continue Austedo 6mg PO BID will evaluate to increase at next visit if tremors worsen. Coarse Tremors UE Bilaterally CD / LD (sinemet) 1 tablet TID 7am, 12noon, and 8pm. Patient Education provided. Seizure prevention Continue Keppra 750mg PO BiD Continue Gabapentin 100mg PO TID Continue Primidone 50mg TID PT for Balance and Gait difficulties. Will Evaluate Sleep Difficulties at next appointment. Orders: Orders PT Evaluation and Treatment Today R26.89 - Other abnormalities of gait and mobility Patient Instructions: Sleep Hygiene provided: set a scheduled bedtime and wake time to help regulate the circadian rhythm and balance the release of pituitary hormones. Sleep in a dark room, temperatures below 68 degrees, and no devices n bed. Limit caffeinated products 6 hours prior to bed, and limit fluids 2-4 hours prior to bed. Gentle night yoga, diffusing essential oils, and playing soft music can be relaxing. Austedo 6mg PO BID Gabapentin 100mg PO TID Primidone 50mg PO daily Keppra 750mg PO BID CD/LD 1tab TID 7am, 12noon, and 8pm patient education provided on wearing off and timing of taking the medication, without Protein products. Monitor BP as small vessel ischemia can be due to years of unmanaged high BP or normal aging process. Continue biking 10min a day and PT for Gait and Balance. Coding Level of Care Code Est Pt Level 4 (07354) Diagnoses Fatigue due to sleep pattern disturbance R53.83; G47.9 Coarse tremors G25.2 Abnormality of gait due to impairment of balance R26.89 Time Spent (min) 30
--- OUTSIDE RECORDS SUMMARY | 2025-02-17 12:06 | XMS_ITS | Clinical Summary ---
Author Organization [facility] Address [address] [place] [address] Phone Care Team Providers Care Player Services Representative Name Role Phone Jessika Barbosa Primary Care Provider [phone] Allergies Active Allergy Reactions Criticality Noted Date Comments Ceftriaxone 09/19/2022 Other reaction(s): Dizziness Hydromorphone 03/04/2018 sweating and hives nausous Oxytocin 10/13/2021 Penicillins 12/11/2011 Medications magnesium oxide (MAG-OX) 400 mg (241.3 elemental magnesium) tablet TAKE 1 TABLET BY MOUTH 2 TIMES DAILY FOR 360 DAYS. 180 tablet Active Additional Information Patient not taking.Reported on 11/10/2024 levETIRAcetam (KEPPRA) 500 mg tablet Take 1 tablet (500 mg total) by mouth 2 (two) times a day. Active lisinopril (PRINIVIL,ZESTRIL ) 40 mg tabletIndications :Primary hypertension Take 1 tablet (40 mg total) by mouth 1 (one) time each day. 90 each 1 024 2024 Active atorvastatin (LIPITOR) 40 mg tabletIndications :Mixed hyperlipidemia Take 1 tablet (40 mg total) by mouth at bedtime. at bedtime. 90 each 1 024 2024 Active sildenafiL (VIAGRA) 50 mg tabletIndications :Erectile dysfunction, unspecified erectile dysfunction type Take 1 tablet (50 mg total) by mouth 1 (one) time each day if needed for erectile dysfunction. 12 tablet 3 024 2024 Active amLODIPine (NORVASC) 5 mg tabletIndications :Primary hypertension Take 1 tablet (5 mg total) by mouth 1 (one) time each day. 90 each 1 024 2024 Active carbidopa-levodop a (SINEMET) 10-100 mg per tablet Take 1 tablet by mouth 3 (three) times a day. 270 tablet 1 Active cyanocobalamin (VITAMIN B-12) 1,000 mcg tablet Take 1 tablet (1,000 mcg total) by mouth 1 (one) time each day. 90 tablet 1 025 Active famotidine (PEPCID) 40 mg tablet TAKE 1 TABLET BY MOUTH EVERY DAY 90 tablet 025 Active labetaloL (NORMODYNE) 200 mg tabletIndications :Primary hypertension TAKE 2 TABLETS BY MOUTH TWICE A DAY 360 tablet 025 Active clopidogreL (PLAVIX) 75 mg tabletIndications :Mixed hyperlipidemia TAKE 1 TABLET BY MOUTH EVERY DAY 90 tablet 025 Active metFORMIN (GLUCOPHAGE) 500 mg tablet TAKE 2 TABLETS BY MOUTH TWICE A DAY WITH MEALS 360 tablet 1 025 Active gabapentin (NEURONTIN) 100 mg capsule Take 1 capsule (100 mg total) by mouth 3 (three) times a day. 90 capsule 2 025 Active gabapentin (NEURONTIN) 100 mg capsule Take 1 capsule (100 mg total) by mouth 3 times daily. 022 2024 Discontinued(Delmi azevedo) metFORMIN (GLUCOPHAGE) 500 mg tablet TAKE 2 TABLETS BY MOUTH TWICE A DAY WITH MEALS 360 tablet 024 2024 Discontinued clopidogreL (PLAVIX) 75 mg tabletIndications :Mixed hyperlipidemia Take 1 tablet (75 mg total) by mouth 1 (one) time each day. 2024 Discontinued famotidine (PEPCID) 40 mg tablet Take 1 tablet (40 mg total) by mouth 1 (one) time each day. 024 2024 Discontinued labetaloL (NORMODYNE) 200 mg tabletIndications :Primary hypertension Take 1 tablet (200 mg total) by mouth 2 (two) times a day. 180 each 1 024 2024 Discontinued Active Problems Problem Noted Date Diagnosed Date Stroke, small vessel 09/20/2022 Dizziness 09/19/2022 Transient ischemic attack 11/25/2021 Encounters Date Type Department Care Team Description 01/19/2025 Telephone Internal Medicine - [facility] [address] [place] [address] Jessika Barbosa, Forms/questionnaires from Last 3 Months Surgical History Surgery Date Site/Laterality Comments APPENDECTOMY PROCEDURE: CT APPENDECTOMY CHOLECYSTECTOMY PROCEDURE: CT LAPAROSCOPY SURG CHOLECYSTECTOMY Medical History Medical History Date Comments Acne rosacea 02/28/2016 DX:Acne rosacea Benign familial tremor 02/17/2018 DX:Benign familial tremor Benign prostatic hyperplasia 10/20/2013 DX: Benign prostatic hyperplasia Bipolar disorder 02/09/2014 DX:Bipolar diso rder (HCC) Chronic constipation 02/28/2016 DX:Chronic constipation DDD (degenerative [...] dependence, continuous (CMS/HCC) 02/27/2018 DX:Opioid dependence, continuous (HCC) Polyp of sigmoid colon 02/10/2015 DX:Polyp of [...] at Not on file Legal Sex Male 11:45 PM EST Gender Identity Not on file Sexual Orientation Not on file Obstetrics History Last Filed [...] AM EDT Office Visit Internal Medicine - [address] [address] Mary Yap NP [address] [place] [id number] Health Maintenance Due Date Last Done Comments [...] 11/10/2025 11/10/2024, 09/19/2022, 09/19/2022, Additional history exists Hypertension/CHF/CAD Annual BMP Blood Test 11/10/2025 11/10/2024, 09/19/2022, 09/19/2022, Additional history exists Diabetes: Annual Retina Eye Exam 01/19/2026 01/19/2025, 01/18/2025, 11/10/2024 Cholesterol Screening (Lipid Panel) 11/10/2029 11/10/2024, 09/20/2022, 09/20/2022, Additional history exists DTaP,Tdap,and Td Vaccines (4 - Td or Tdap) 08/21/2033 08/21/2023, 02/18/2023, 12/13/2011 Pneumococcal Vaccine: 50+ Years Completed 05/13/2024, 02/18/2023 Pneumococcal Vaccine: Pediatrics [...] patient's age to complete this topic Meningococcal B Vacine Aged Out No lo nger eligible based on patient's age to complete this topic RSV Immunization Patients Under 20 months Aged Out No longer eligible based on patient's age to complete this topic Varicella Vaccines Aged Out No longer eligible based on patient's age to complete this topic Procedures Procedure Name Priority Date/Time Associated Diagnosis Comments EXTERNAL DIABETIC RETINA EYE EXAM 01/19/2025 EXTERNAL DIABETIC RETINA EYE EXAM 01/18/2025 MICROALBUMIN CREATININE URINE RATIO Routine 11/10/2024 3:38 PM EST Type 2 diabetes mellitus without complication, without long-term current use of insulin (CMS/HCC) COMPREHENSIVE METABOLIC PANEL Routine 11/10/2024 3:38 PM EST Mixed hyperlipidemia HEMOGLOBIN A1C Routine 11/10/2024 3:38 PM EST Type 2 diabetes mellitus without complication, without long-term current use of insulin ([facility]) LIPID PANEL WITH REFLEX TO DIRECT LDL Routine 11/10/2024 3:38 PM EST Mixed hyperlipidemia from Last 3 Months or Most Recently Relevant to Health Maintenance Results * External Diabetic Retina Eye Exam Report (01/19/2025) Only the most recent of2 resultswithin the time period is included. Anatomical Region Laterality Modality Ultrasound us Provider Onbase MD BURGOS US PROCEDURES Final Resul t * Lipid panel with reflex to direct LDL (11/10/2024 3:38 PM EST) Cholesterol 122 0 - 200 mg/dL LAB CHEMISTRY METHOD 11/10/2024 6:50 PM EST [facility] Triglycerides 147 0 - 150 mg/dL LAB CHEMISTRY METHOD 11/10/2024 6:50 PM EST [facility] HDL 44 >=40 mg/dL LAB CHEMISTRY METHOD 11/10/2024 6:50 PM EST [facility] LDL Calculated 49 0 - 100 mg/dL LAB CHEMISTRY METHOD 11/10/2024 6:50 PM EST [facility] VLDL Cholesterol Kwasi 29.4 mg/dL LAB CHEMISTRY METHOD 11/10/2024 6:50 PM EST [facility] Non HDL Chol. (LDL+VLDL) 78 <145 mg/dL LAB CHEMISTRY METHOD 11/10/2024 6:50 PM EST [facility] Chol/HDL Ratio 2.8 0.0 - 4.4 LAB CHEMISTRY METHOD 11/10/2024 6:50 PM EST [facility] Blood Venous blood specimen / Unknown Venipuncture / Unknown 11/10/2024 3:38 PM EST 11/10/2024 3:38 PM EST us Mary Yap NP LAB BLOOD ORDERABLES Final Resul t Performing Organization Address City/[facility] [address]/ZIP Co de Phone Number [facility] [address] [place] [address], [place] [phone] * (ABNORMAL) Microalbumin creatinine urine ratio (11/10/2024 3:38 PM EST) Creatinine, Urine 119.0 mg/dL LAB CHEMISTRY METHOD 11/10/2024 7:08 PM [facility] Microalb, Ur 290.0(H) 0.0 - 29.0 mg/L LAB CHEMISTRY METHOD 11/10/2024 7:08 PM EST [facility] Microalb/Crea t Ratio 244(H) <30 mg/g creat LAB CHEMISTRY METHOD 11/10/2024 7:08 PM EST [facility] Urine Urine specimen obtained by clean catch procedure / Unknown Non-blood Collection / Unknown 11/10/2024 3:38 PM EST 11/10/2024 3:38 PM EST us Mary Yap NP LAB URINE ORDERABLES Final Resul t Performing Organization Address City/[facility] [address]/ZIP Co de Phone Number [facility] [address] [place] [address], [place] [phone] * (ABNORMAL) Hemoglobin A1c (11/10/2024 3:38 PM EST) Hemoglobin A1C 6.5(H) <6.5 % LAB CHEMISTRY METHOD 11/11/2024 9:56 AM [facility] Mean Bld Glu Estim. 140 mg/dL LAB CHEMISTRY METHOD 11/11/2024 9:56 AM [facility] Blood Venous blood specimen / Unknown Venipuncture / Unknown 11/10/2024 3:38 PM EST 11/10/2024 3:38 PM EST Mary Yap NP LAB BLOOD ORDERABLES Final Resul t [facility] [address] [place] [address], * (ABNORMAL) Comprehensive metabolic panel (11/10/2024 3:38 PM EST) Pathologist [facility] Sodium 143 133 - 145 mmol/L LAB CHEMISTRY METHOD 11/10/2024 6:50 PM [facility] Potassium 4.2 3.5 - 5.5 mmol/L LAB CHEMISTRY METHOD 11/10/2024 6:50 PM [facility] Chloride 107 96 - 110 mmol/L LAB CHEMISTRY METHOD 11/10/2024 6:50 PM [facility] CO2 27 21 - 32 mmol/L LAB CHEMISTRY METHOD 11/10/2024 6:50 PM [facility] Anion Gap 9 3 - 11 LAB CHEMISTRY METHOD 11/10/2024 6:50 PM [facility] Glucose 108(H) 70 - 100 mg/dL LAB CHEMISTRY METHOD 11/10/2024 6:50 PM [facility] BUN 30(H) 5 - 25 mg/dL LAB CHEMISTRY METHOD 11/10/2024 6:50 PM [facility] Creatinine 1.24 0.70 - 1.30 mg/dL LAB CHEMISTRY METHOD 11/10/2024 6:50 PM [facility] eGFR 65 >=60 mL/min/1. 73m2 LAB CHEMISTRY METHOD 11/10/2024 6:50 PM [facility] Comment:Calculation based on the??Chronic Kidney Disease Epidemiology Collaboration (CKD-EPI) equation refit??without adjustment for race. BUN/Creatinine Ratio 24.2 LAB CHEMISTRY METHOD 11/10/2024 6:50 PM [facility] Calcium 10.0 8.5 - 10.5 mg/dL LAB CHEMISTRY METHOD 11/10/2024 6:50 PM [facility] AST (SGOT) 13 10 - 42 unit/L LAB CHEMISTRY METHOD 11/10/2024 6:50 PM [facility] ALT (SGPT) 13 10 - 60 unit/L LAB CHEMISTRY METHOD 11/10/2024 6:50 PM [facility] Alkaline Phosphatase 96 42 - 121 unit/L LAB CHEMISTRY METHOD 11/10/2024 6:50 PM [facility] Total Protein 7.4 6.0 - 8.0 g/dL LAB CHEMISTRY METHOD 11/10/2024 6:50 PM [facility] Albumin 4.2 3.2 - 5.0 g/dL LAB CHEMISTRY METHOD 11/10/2024 6:50 PM [facility] Total Bilirubin 0.4 0.0 - 1.4 mg/dL LAB CHEMISTRY METHOD 11/10/2024 6:50 PM [facility] Blood Venous blood specimen / Unknown Venipuncture / Unknown 11/10/2024 3:38 PM EST 11/10/2024 3:38 PM EST us Mary Yap NP LAB BLOOD ORDERABLES Final Resul t [facility] [address] [place] [address], from Last 3 Months or Most Recently Relevant to Health Maintenance Insurance MEDICARE [facility] Advance Directives Documents on File Type Date Recorded Patient Nitrate Operator Expl anation Health Care Decision (hx) 10/14/2023 [...] (hx) 05/30/2020 AD MORALES DIRECTIVE Care Teams Player Services Representative Relationship Specialty Start Date End Date Jessika Barbosa DO [address] [place] [address] PCP - General Internal Medicine 11/10/24
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
--- OUTSIDE RECORDS SUMMARY | 2025-02-17 12:06 | XMS_ITS | Clinical Summary ---
Author Organization [facility] Address [address] [place] [address] Care Team Providers Care Bait Digger Name Role Phone Unavailable Primary Care Provider [...] Advance Directives For more information, please contact: [phone] Latest Code Status on File Code Status Date Activated Date Inactivated Comments Full Code 09/19/2022 2:37 PM 09/23/2022 12:01 AM Th is code status was ascertained in the following way: As per discussion with patient .
--- OUTSIDE RECORDS SUMMARY | 2025-02-17 12:06 | XMS_ITS | Encounter Summary ---
Author Organization [facility] Address [address] [facility] [address] [place] [address] Phone Care Team Providers Care Magazine Journalist Name Role Phone Yvette Colon MD Primary Care Provider Nanette duggan Encounter Details Date Type Department Care Team (Late st Contact Info) Description 01/22/2025 Orders Only [facility] [address] [facility] [address] [place] [address] Bipin Newberry MD [address] [address] Chronic kidney disease, stage 2 [...] Office Visit [facility] [address] [address] Bipin Newberry MD [address] [address] 03/08/2025 Orders Only [facility] [address] [address] Bipin Newberry MD [address] [address] Stage 3a chronic kidney disease (HCC) documented as of this encounter Visit Diagnoses Diagnosis Chronic kidney disease, stage 2 (mild) Other acute kidney failure (HCC) Stage 3a chronic kidney disease (HCC) documented in this encounter Care Teams Magazine Journalist Relationship Specialty Start Date End Date Yvette Colon MD PCP - General Family Medicine 09/07/24 documented as of this encounter
--- OUTSIDE RECORDS SUMMARY | 2025-02-17 12:06 | XMS_ITS | Clinical Summary ---
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 11/25/2021 jail current use of aspirin 11/25/2021 Hyperlipidemia 11/25/2021 History of falling 11/25/2021 Gastro-esophageal reflux disease without esophag itis 11/25/2021 Essential hypertension 11/25/2021 Depressive disorder 11/25/2021 Nonruptured cerebral aneurysm 11/25/2021 Benign prostatic hyperplasia without lower urinary tract symptom 11/25/2021 Anxiety disorder 11/25/2021 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 11/25/2021 Encounters Date Type Department Care Team Description 01/22/2025 Orders Only [facility] [address] [place] [address] Bipin Newberry MD Chronic kidney disease, stage 2 (mild); Other acute kidney failure (HCC) 12/25/2024 Orders Only [facility] [address] [place] [address] Bipin Newberry MD Chronic kidney disease, stage 2 (mild); Other acute kidney failure (HCC) 11/27/2024 Orders Only [facility] [address] [place] [address] Bipin Newberry MD Chronic kidney disease, stage [...] Office Visit [facility] [address] [phone] Bipin Newberry MD [address] [phone] 03/08/2025 Orders Only [facility] [address] [place] [phone] Bipin Newberry MD [address] [phone] Stage 3a chronic kidney disease (HCC) Health Maintenance Due Date Last Done Comments [...] PCV) 02/19/2024 05/13/2024, 02/18/2023 Diabetes: Hemoglobin A1C 02/08/2025 024, 05/13/2024, 01/10/2024, Additional history exists Influenza Vaccine Completed 08/13/2024, , 09/25/2020, Additional history exists Insurance MEDICARE [facility] MEDICARE [facility] Care Teams Utilization Reviewer Relationship Specialty Start Date End Date Yvette Colon MD PCP - General Family Medicine 09/07/24
--- OUTSIDE RECORDS SUMMARY | 2025-02-17 12:06 | XMS_ITS | Data Portability ---
Author Organization [place] [facility] Address [address] [place] [phone] Care Team Providers Care Relay Repairer Name Role Phone DANIEL RAMIRES Primary Care Provider [phone] Assessment Encounter Date Assessment Date Assessment LastModified [...] He believes he had additional studies at [facility] in [place]. However, will be called over there there [...] Recorded Time Loss of sense of smell 54176573 Active 024 STEW JERONIMO MD [address] [facility] [place] [address], [place], [phone] , [facility] 06/23/2024 09:53:13 Parkinson 's disease 26997087 Active 024 STEW JERONIMO MD [address] [place] [address], [place], [phone] , [facility] 06/23/2024 09:53:17 Problem Notes None recorded. [...] Updated DateTime 06/23/2024 172.72 cm 23.7 kg/m2 59957.41 g Jm Cheung [place] [facility] 06/23/2024 09:37:02 Social History None recorded. Functional Status None recorded. Mental Status None recorded. Family History Nothing Reported. Medical History Condition Response Anxiety Y Migraines Y Diabetes Y Hypertension Y Past Encounters Encounter ID Performer Location Encounter Start Date Encounter Closed Date Diagnosis/Indication Diagnosis SNOMED-CT Code Diagnosis ICD10 Code Diagnosis Note [id number] STEW JERONIMO MD [facility] [address] [phone] 06/23/2024 08:52:57 06/23/2024 10:20:29 Loss of sense of smell 52406694 R43.0 Parkinson's disease 4904 9000 G20.A1 Health Concerns Section Related Observation LastModified by Organization Detai ls LastModified Time None Recorded Concern Status LastModified by Organization Details LastModified Time None Recorded Advance Directives Directive None Recorded Payers Encounter Date Sequence Insurance Name Policy Number Policy Blanc Covered Member ID Blanc Member ID Guarantor Name 06/23/2024 2 [place] [id number] Rock Lucas [id number] Rock Lucas 06/23/2024 1 [place] [employer] Rock Lucas [id number] Rock Lucas Notes Date Note Type Note Provider Name and Address Organization Details Recorded Time 06/23/2024 text/html Patient reports 6 months of loss of smell and taste. He reports his had COVID-19 about 9 months ago. He denies having any infection himself. He does have a history of Parkinson's disease and diabetes. No CP or SOB STEW BYRD MD [address] [place] [address], [place], [phone], [facility] - [facility] 06/23/2024 10:19:19
== END 2025-02-17 11:22 | disposition home or self-care (01) ==
LOC: HO.HSMS 10:21
PROVIDERS: PCP Family Medicine; Visit Provider Physician Assistant Medical
DX: R53.83 Other fatigue (principal); G47.9 Sleep disorder, unspecified; G25.2 Other specified forms of tremor; R26.89 Other abnormalities of gait and mobility
CPT/HCPCS: 99214

== ENCOUNTER → 2025-02-17 10:21 | Outpatient (BNVA) | payer MEDICARE, SELFPAY | PROVIDERS: PCP Family Medicine; Visit Provider Physician Assistant Medical | DX: G25.2 Other specified forms of tremor (principal); R53.83 Other fatigue; R26.89 Other abnormalities of gait and mobility; G47.9 Sleep disorder, unspecified | CPT/HCPCS: 99212 ==

== ENCOUNTER 2025-06-16 11:00 | Outpatient (AMB) | payer MEDICARE, SELFPAY ==
--- NOTE | 2025-06-16 10:54 | A.OFFVIS_ITS ---
Vital Signs 06/16/25 10:55 Height 5 ft 8.5 in Weight 163 lb BMI 24.4 BP 134/80 Blood Pressure Location Rt brachial Position Sitting Pulse 74 Pulse Source Pulse Oximeter Pulse Oximetry (%) 99 Oxygen Delivery Method Room Air Intake Visit Reasons: Follow up 6mo Project Scheduler Required: No Accompanied by: Spouse Allergies No Known Allergies Allergy (Verified 06/16/25 11:04) HPI Comments Details: 65y/o r. handed male is here for a f/u of Parkinsons disease.He is doing ok No seizures since last visit No falls.He is doing well with current medications He has trouble falling staying asleep. H eis not sure if he snores. He had home sleep test 3 years ago and was told it was normal Interval Medical History: He is accompanied by his Miesha. He used to be on Austedo which helped decrease his tremors but his insurance did not cover it so he stopped and his tremors have increased. He denies seizures. He is still having coarse tremors despite taking the Austedo 6mg PO BID. He starts to shake and says the medications wears off in 4 hours, he takes his second dose at 4 pm. He is also taking CD/LD TID, however it didn't occur to him to take this medication 3 times a day, he seemed a bit confused, explained to him this medication needs to be taken without meat products, and he is eating fruits and more salads. He has been having difficulty with swallowing and chewing and this continues to impact his quality of life and mood. He says he plans to see a dentist. He gets meals from meals on wheels daily. He completes all his ADLs with his 's help, can dress himself and bathe himself. He denies falls. He walks with a cane as he continues to have gait and balance difficulties, he does not climb stairs. He has constipation, takes miralax and has BM every 3 days with hard stools. He doesn't like to be around people as he feels overstimulated. His mood is irritable, he ruminates, and says he starts to spiral, he has a therapist whom he sees ever 2 weeks, for anxiety. His memory is poor, difficulty with doing math, forgets task, appointments, and writes everything down, he does not drive. At [facility] the Psychiatrist manages the gabapentin 100mg TID and Keppra 750mg PO BID. History from initial visit- Both the patient and his are poor historians. According to the patient he was diagnosed with Parkinsons about 20 years ago . He started having tremors in his hands.He has h/o bipolar disorder, chronic back pain, opiod dependance CKD HTN CAD Diabetes, exposure to multiple neuroleptics. He was admitted at [facility] on 09/2023 for weakness - was supected to have Parkinsons, started on carbidopa/levodopa which helped his tremors. He was also started on keppra for possible seizures. No further history was obtainable. He reports fh/o tremors and had a diagnosed of familial tremors until 09/2023 He is not sure if he is taking quetiapine. He denies seizure like episodes. He denies speech issues. But reports trouble walking, feeling off balance and forgetfullness. 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 CAD (coronary artery disease) Shortness of breath Ascending aorta dilatation Thrombosis of vein CKD (chronic kidney disease) Surgical History H/O cardiac catheterization History of appendectomy Previous back surgery H/O heart surgery Family History Father Stroke Social History Alcohol intake: never Patient Tobacco Use Status: Never used Tobacco Physical Exam Vital Signs: Last Vital Signs Pulse 74 06/16/25 10:55 BP 134/80 06/16/25 10:55 Pulse Ox 99 06/16/25 10:55 Oxygen Delivery Method Room Air 06/16/25 10:55 BMI result Body Mass Index 24.4 Const General: cooperative Nutritional Appearance: average body habitus Orientation/consciousness: patient oriented x3 Eyes Pupils: Equal, round and reactive pupils present Neck Neck: Yes no meningeal signs Neuro Other: moderate to high amplitude tremors - rest postural in UE and LE. Mild decreased blink Normal voice FFM and foot taps normal No cogwheel rigidity Gait- with cane normal stride mild wide base , normal posture. General: patient oriented x3 and no meningeal signs Cranial nerves: Yes Equal, round and reactive pupils present, Yes Bilaterally intact EOM present, Yes Nystagmus not present, Yes Normal facial strength present and Yes Midline tongue present Motor exam (neuro): 5/5 motor strength present throughout and Normal motor muscle tone present throughout Coordination: [id number] test normal Assessment & Plan Assessment & Plan (1) Coarse tremors: Comment: / drug induced parkinsonism, familial tremors Code(s): G25.2 - Other specified forms of tremor Category: Medical (2) Abnormality of gait due to impairment of balance: Code(s): R26.89 - Other abnormalities of gait and mobility Category: Medical (3) Fatigue due to sleep pattern disturbance: Code(s): R53.83 - Other fatigue; G47.9 - Sleep disorder, unspecified Category: Medical Plan Continue Austedo 6mg PO BID will evaluate to increase at next visit if tremors worsen. Continue CD / LD (sinemet) 10/100 1 tablet TID 7am, 12noon, and 8pm. Patient Education provided. Seizure prevention Continue Keppra 750mg PO BiD Continue Gabapentin 100mg PO TID Increase Primidone 50mg 1-1-2 tabs Medications: Changed From primidone 50 mg PO TID 90 tabs 6RF To primidone 50 mg orally 1-1-2 tabs; 120 tabs 6RF Coding Level of Care Code Est Pt Level 4 (12870) Complex EM visit Add On G2211 Diagnoses Coarse tremors G25.2 Abnormality of gait due to impairment of balance R26.89 Fatigue due to sleep pattern disturbance R53.83; G47.9
[2025-06-16 10:55] VITALS: BP 134/80; PULSE 74; O2SAT 99; BMI 24.4
--- OUTSIDE RECORDS SUMMARY | 2025-06-16 12:03 | XMS_ITS | Clinical Summary ---
Author Organization [facility] Address [address] [place] [phone] Phone Care Team Providers Care Polygraph Examiner Name Role Phone Mary Yap NP Primary Care Provider Unavailabl e Allergies Active Allergy Reactions Criticality Noted Date Comments Benztropine 12/06/2022 Ceftriaxone 09/25/2022 Hydromorphone 09/25/2022 Lamotrigine 12/06/2022 Oxytocin 10/13/2021 Penicillins 12/11/2011 Medications carbidopa-levo dopa (SINEMET) 10-100 MG per tablet Take 1 [...] noon and 1 capsule in the evening. 2 Active labetalol (NORMODYNE) 200 MG tablet Take 2 tablets by mouth in the morning and 2 tablets in the evening. 2 Active levETIRAcetam (KEPPRA) 500 MG tablet Take 1 tablet by mouth in the morning and 1 tablet in the evening. 3 Active metFORMIN (GLUCOPHAGE) 500 MG tablet Take 500 mg by mouth 1 (one) time each day with dinner 2 Active allopurinol (ZYLOPRIM) 100 MG tablet Take 100 mg by mouth 1 (one) time each day Active primidone (MYSOLINE) 50 MG tablet Take 50 mg by mouth in the morning and 50 mg in the evening and 50 mg before bedtime. Active Austedo 6 MG tablet 5 Active Empagliflozin 10 MG tablet Take 10 mg by mouth 1 (one) time each day 90 tablet 3 5 03/02/20 26 Active tamsulosin (FLOMAX) 0.4 MG 24 hr capsule TAKE 1 CAPSULE BY MOUTH 1 TIME EACH DAY. 90 capsule 3 5 Active lisinopril 40 MG tablet Take 40 mg by mouth 1 (one) time each day Active Magnesium 400 MG tablet Take 400 mg by mouth 2 (two) times a day Active famotidine (PEPCID) 20 MG tablet Take 40 mg by mouth 1 (one) time each day Active omeprazole (PriLOSEC) [address] capsule Take 40 mg by mouth 2 06/08/20 25 Discontinued perphenazine 8 MG tablet Take 8 mg by mouth 1 (one) time each day with dinner 06/08/20 25 Discontinued benztropine (COGENTIN) 0.5 MG tablet Take 0.5 mg by mouth 1 (one) time each day with dinner 06/08/20 25 Discontinued atorvastatin (LIPITOR) 40 MG tablet Take 40 mg by mouth 1 (one) time each day with dinner 06/08/20 25 Discontinued tamsulosin (FLOMAX) 0.4 MG 24 hr capsule Take 1 capsule (0.4 mg total) by mouth 1 (one) time each day 90 capsule 3 5 05/24/20 25 Discontinued lisinopril-hyd roCHLOROthiazi de (PRINZIDE,ZEST ORETIC) 20-12.5 MG per tablet Take 2 tablets by mouth 1 (one) time each day 180 tablet 3 5 06/08/20 25 Discontinued colchicine 0.6 MG tablet Take 0.6 mg by mouth 1 (one) time each day 06/08/20 25 Discontinued Active Problems Problem Noted Date Diagnosed Date Chronic kidney disease, stage 2 (mild) 4 Cerebral atherosclerosis 09/25/2022 Type 2 diabetes mellitus 11/25/2021 TIA 11/25/2021 Parkinson's disease 11/25/2021 Orthostatic hypotension 11/25/2021 Migraine, not intractable, without status migrai nosus 11/25/2021 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 11/25/2021 [facility] current use of aspirin 11/25/2021 Hyperlipidemia 11/25/2021 History of falling 11/25/2021 Gastro-esophageal reflux disease without esophag itis 11/25/2021 Essential hypertension 11/25/2021 Depressive disorder 11/25/2021 Nonruptured cerebral aneurysm 11/25/2021 Benign prostatic hyperplasia without lower urinary tract symptom 11/25/2021 Anxiety disorder 11/25/2021 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 11/25/2021 Encounters Date Type Department Care Team Description 06/08/2025 2:45 PM EDT Office Visit [facility] [address] [phone] Bipin Newberry MD Stage 3a chronic kidney disease (HCC) (Primary Dx); Type 2 diabetes mellitus with other diabetic kidney complication (HCC) 06/04/2025 Orders Only [facility] [place] [address] [phone] Bipin Newberry MD 06/01/2025 Orders Only [facility] [place] [address] [phone] Bipin Newberry MD Stage 3a chronic kidney disease (HCC) 05/21/2025 Refill [facility] [place] [address] [phone] Bipin Newberry MD 04/16/2025 Orders Only [facility] [address] [place] [phone] Bipin Newberry MD Chronic kidney disease, stage 2 (mild); Other acute kidney failure (HCC) 03/19/2025 Orders Only [facility] [address] [place] [phone] Bipin Newberry MD Chronic kidney disease, stage [...] Sign Reading Time Taken Comments Blood Pressure 130/78 06/08/2025 2:49 PM EDT Pulse 70 06/08/2025 2:49 PM EDT Temperature - - Respiratory Rate - - Oxygen Saturation 99% 06/08/2025 2:49 PM EDT Inhaled Oxygen Concentration - - Weight 74.4 kg (164 lb) 06/08/2025 2:49 PM EDT Height - - Body Mass Index - - Plan of Treatment Upcoming Encounters Date Type Department Care Team (Late st Contact Info) Description 09/01/2025 11:15 AM EDT Office Visit [facility] [address] [phone] Bipin Newberry MD [address] [phone] Health Maintenance Due Date Last Done Comments Colorectal Cancer Screening: Annual FOBT 2008 Colorectal Cancer Screening: Colonoscopy 2008 Colorectal Cancer Screening: Sigmoidoscopy 2008 Hepatitis B Vaccine (1 of 3 - Risk 3-dose series) 2019 Diabetes: Ophthalmology Exam 01/21/2024 Diabetes: Pedal Pulse Checked 01/21/2024 Diabetes: Sensory Foot Exam 01/21/2024 Diabetes: Visual Foot Exam 01/21/2024 Pneumococcal Vaccine: 50+ Ye ars (2 of 2 - PCV) 02/19/2024 05/13/2024, 02/18/2023 Influenza Vaccine (#1) 2025 4, 08/12/2023, 09/25/2020, Additional history exists Diabetes: Hemoglobin A1C 09/04/2025 025, 06/04/2025, 02/26/2025, Additional history exists Pneumococcal Vaccine: Peds ( 0 to 5 Years) and At-Risk Patients (6 to 49 Years) Discontinued 05/13/2024, 02/18/2023 Procedures Procedure Name Priority Date/Time Associated Diagnosis Comments MISCELLANEOUS LAB TEST Routine 9:18 AM EDT PROTEIN, URINE, RANDOM Routine 9:18 AM EDT CBC WITH AUTO DIFFERENTIAL Routine 06/04/2025 9:18 AM EDT URIC ACID Routine 06/04/2025 9:18 AM EDT Stage 3a chronic kidney disease (HCC) FERRITIN Routine 06/04/2025 9:18 AM EDT Stage 3a chronic kidney disease (HCC) IRON PANEL (FE, TIBC, TSAT) Routine 06/04/2025 9:18 AM EDT Stage 3a chronic kidney disease (HCC) HEMOGLOBIN A1C Routine 06/04/2025 9:18 AM EDT Stage 3a chronic kidney disease (HCC) MAGNESIUM Routine 06/04/2025 9:18 AM EDT Stage 3a chronic kidney disease (HCC) VITAMIN D 25 HYDROXY Routine 06/04/2025 9:18 AM EDT Stage 3a chronic kidney disease (HCC) PTH, INTACT Routine 06/04/2025 9:18 AM EDT Stage 3a chronic kidney disease (HCC) RENAL FUNCTION PANEL Routine 06/04/2025 9:18 AM EDT Stage 3a chronic kidney disease (HCC) UA W/REFLEX MICROSCOPIC & CULTURE Routine 06/04/2025 9:17 AM EDT URINE ALBUMIN / CREATININE RATIO Routine 06/04/2025 9:17 AM EDT Stage 3a chronic kidney disease (HCC) from Last 3 Months Results * (ABNORMAL) CBC auto differential (06/04/2025 9:18 AM EDT) WBC 6.9 4.8 - 10.8 K/mcL [facility] RBC 5.60(H) 4.50 - 5.50 M/[facility] Hgb 15.6 13.5 - 17.5 g/dL [facility] Hematocrit 50.8 42.0 - 54.0 % [facility] MCV 90.2 79.0 - 98.[address] [facility] MCH 27.7 27.0 - 32.[address] [facility] MCHC 30.7(L) 32.0 - 37.0 g/dL [facility] RDW 13.7 11.0 - 15.0 % [facility] Platelets 207 130 - 400 K/[facility] MPV 9.8 7.0 - 11.0 [facility] nRBC Count 0.0 <1.0 % [facility] NRBC Absolute 0.00 <0.10 K/[facility] Bands Relative 66.6 % [facility] Lymphocyte Realative Percent 20.6 % [facility] Monocyte Relative Percent 8.3 % [facility] Eosinophil Relative Percent 2.6 % [facility] Basophils Relative Diff 1.3 % [facility] Immature Granulocytes 0.6 % [facility] Neutrophils Absolute 4.59 1.50 - 7.00 K/[facility] Lymphocytes Absolute 1.42 1.00 - 5.00 K/[facility] Monocytes Absolute 0.57 0.20 - 1.00 K/[facility] Eosinophil Absolute 0.18 0.00 - 0.50 K/[facility] Basophil ABS 0.09 0.00 - 0.20 /[facility] Immature Grans (Absolute) 0.04(H) 0.00 - 0.03 /[facility] 06/04/2025 9:18 AM EDT 06/04/2025 11:32 AM EDT us Bipin Newberry MD LAB BLOOD ORDERABLES Final Result Performing Organization Address City/[facility]/ZIP Co de Phone Number [facility] [address] [place] [address] * Miscellaneous Lab Test (06/04/2025 9:18 AM EDT) Scan Result See Scanned Result [facility] 06/04/2025 9:18 AM EDT 06/04/2025 12:23 PM EDT us Bipin Newberry MD LAB BLOOD ORDERABLES Final Result Performing Organization Address City/[facility]/ZIP Co de Phone Number [facility] * (ABNORMAL) Iron Panel (Fe, TIBC, TSAT) (06/04/2025 9:18 AM EDT) Iron 71 50 - 160 mcg/dL [facility] TIBC 410 250 - 450 mcg/dL [facility] Iron Saturation (TSat) 17(L) 20 - 50 % [facility] Blood specimen (specimen) Venous blood / Unknown 06/04/2025 9:18 AM EDT 06/04/2025 11:32 AM EDT us Bipin Newberry MD LAB BLOOD ORDERABLES Final Result Performing Organization Address [facility]/ZIP Co de Phone Number [facility] [address] [place] [address] * Protein, urine, random (06/04/2025 9:18 AM EDT) Protein, Ur 15 mg/dL [facility] 06/04/2025 9:18 AM EDT 06/04/2025 11:32 AM EDT us Bipin Newberry MD LAB URINE ORDERABLES Final Result Performing Organization Address [facility] Co de Phone Number [facility] [address] [place] [address] * Vitamin D 25 Hydroxy (06/04/2025 9:18 AM EDT) Vitamin D, 25-OH, Total 34.4 30.0 - 80.0 ng/mL [facility] Blood specimen (specimen) Venous blood / Unknown 06/04/2025 9:18 AM EDT 06/04/2025 11:32 AM EDT us Bipin Newberry MD LAB BLOOD ORDERABLES Final Result Performing Organization Address [facility] Co de Phone Number [facility] [address] [place] [address] * Uric Acid (06/04/2025 9:18 AM EDT) Uric Acid 5.2 3.7 - 9.2 mg/dL [facility] Blood specimen (specimen) Venous blood / Unknown 06/04/2025 9:18 AM EDT 06/04/2025 11:32 AM EDT us Bipin Newberry MD LAB BLOOD ORDERABLES Final Result Performing Organization Address [facility] Co de Phone Number [facility] [address] [place] [address] * (ABNORMAL) PTH, Intact (06/04/2025 9:18 AM EDT) PTH 117.7(H) 18.5 - 88.0 pcg/mL [facility] Blood specimen (specimen) Venous blood / Unknown 06/04/2025 9:18 AM EDT 06/04/2025 11:32 AM EDT us Bipin Newberry MD LAB BLOOD ORDERABLES Final Result Performing Organization Address [facility] Co de Phone Number [facility] [address] [place] [address] * Magnesium (06/04/2025 9:18 AM EDT) Magnesium 2.4 1.9 - 2.6 mg/dL [facility] Blood specimen (specimen) Venous blood / Unknown 06/04/2025 9:18 AM EDT 06/04/2025 11:32 AM EDT us Bipin Newberry MD LAB BLOOD ORDERABLES Final Result Performing Organization Address [facility] Co de Phone Number [facility] [address] [place] [address] * (ABNORMAL) Hemoglobin A1c (06/04/2025 9:18 AM EDT) Hemoglobin A1C 6.5(H) <6.5 % [facility] Estimated Average Glucose 140 mg/dL [facility] Blood specimen (specimen) Venous blood / Unknown 06/04/2025 9:18 AM EDT 06/04/2025 11:32 AM EDT us Bipin Newberry MD LAB BLOOD ORDERABLES Final Result [facility] [address] [place] [address] * (ABNORMAL) Ferritin (06/04/2025 9:18 AM EDT) Ferritin 12(L) 26 - 388 ng/mL [facility] Blood specimen (specimen) Venous blood / Unknown 06/04/2025 9:18 AM EDT 06/04/2025 11:32 AM EDT Bipin Newberry MD LAB BLOOD ORDERABLES Final Result Performing Organization Address City/[facility]/ZIP Co de Phone Number [facility] [address] [place] [address] * (ABNORMAL) Renal Function Panel (06/04/2025 9:18 AM EDT) [facility] Sodium 139 133 - 145 mmol/L [facility] Potassium 4.9 3.5 - 5.5 mmol/L [facility] Chloride 105 96 - 110 mmol/L [facility] Bicarbonate (CO2) 29 21 - 32 mmol/L [facility] Anion Gap 5 3 - 11 [facility] Glucose 186(H) 70 - 100 mg/dL [facility] BUN 20 5 - 25 mg/dL [facility] Creatinine Serum 1.35(H) 0.70 - 1.30 mg/dL [facility] eGFR 58(L) >=60 mL/min/1. 73m2 [facility] Comment:Calculation based on the Chronic Kidney Disease Epidemiology Collaboration (CKD-EPI) equation refit without adjustment for race. BUN/Creatinine Ratio 14.8 [facility] Albumin 4.1 3.2 - 5.0 g/dL [facility] Calcium 9.6 8.5 - 10.5 mg/dL [facility] Phosphorus 4.3 2.5 - 4.5 mg/dL [facility] Blood specimen (specimen) Venous blood / Unknown 06/04/2025 9:18 AM EDT 06/04/2025 11:32 AM EDT us Bipin Newberry MD LAB BLOOD ORDERABLES Final Result Performing Organization Address City/[facility]/ZIP Co de Phone Number JACOB [facility] [address] [place] [address] * (ABNORMAL) Urinalysis w/reflex Micro and Culture (06/04/2025 9:17 AM EDT) Specific [place] 1.026 1.003 - 1.030 [facility] pH Urine 6.0 5.0 - 8.[address] [facility] LEUKOCYTES, URINE Negative Negative [facility] Nitrite, Urine Negative Negative [facility] Protein, Urine Negative <=Trace mg/dL [facility] Glucose Urine >=1000(A) Negative mg/dL [facility] Ketones, Urine Negative Negative mg/dL [facility] Urobilinogen Urine 0.2 0.2 - 1.0 mg/dL [facility] Bilirubin Urine Negative Negative [facility] Blood Urine Negative Negative [facility] 06/04/2025 9:17 AM EDT 06/04/2025 11:32 AM EDT us Bipin Newberry MD LAB HISTORICA [id number] RESULTS Final Result [facility] [address] [place] [address] * (ABNORMAL) Urine Albumin / Creatinine Ratio (06/04/2025 9:17 AM EDT) Creatinine, Urine 78.0 mg/dL [facility] Microalbumin Urine Random 44.5(H) 0.0 - 29.0 mg/L [facility] Microalbumin/Cre atinine Ratio 57(H) <30 mg/g creat [facility] Urine specimen (specimen) Urine specimen obtained by clean catch procedure / Unknown 06/04/2025 9:17 AM EDT 06/04/2025 11:32 AM EDT Bipin Newberry MD LAB URINE ORDERABLES Final Result Performing Organization Address [facility]/State/[facility] Co de Phone Number [facility] [address] [place] [address] from Last 3 Months Insurance Medicare [facility] Medicare [facility] Care Teams Polygraph Examiner Relationship Specialty Start Date End Date Mary Yap NP [address] [place] [id number] PCP - General Nurse Practitioner 03/02/25
--- OUTSIDE RECORDS SUMMARY | 2025-06-16 12:03 | XMS_ITS | Data Portability ---
Author Organization [place] - [facility] Address [address] [address] Care Team Providers Care Substation Wireman Name Role Phone DANIEL RAMIRES Primary Care Provider [phone] Assessment Encounter Date Assessment Date Assessment LastModified [...] He believes he had additional studies at [employer] in [place]. However, will be called over there there [...] record ed. [email or web address] Not Available 11/2023 13:53:07 06/25/20 24 08/21/2023 CT, head + brain , w/o contr ast No observ ation record ed. [email or web address] Not Available 11/2023 13:54:50 Result Notes None recorded. Problems Name Problem SNOMED Code Status Onset Date Resolution Date Notes Provider Name and Address Organization Details Recorded Time Loss of sense of smell 35830358 Active 024 STEW JERONIMO MD [address] [facility],[place] [address], [place], [phone] , [facility] 06/23/2024 09:53:13 Parkinson 's disease 24070589 Active 024 STEW JERONIMO MD [address] [facility] [address], [place], [place], [phone] , [facility] 06/23/2024 09:53:17 Problem Notes None recorded. Medical Equipment None Reported. [...] Updated DateTime 06/23/2024 172.72 cm 23.7 kg/m2 36359.41 g Jm Cheung [place] - [facility] 06/23/2024 09:37:02 Social History None recorded. Functional Status None recorded. Mental Status None recorded. Family History Nothing Reported. Medical History Condition Response Diabetes Y Migraines Y Anxiety Y Hypertension Y Past Encounters Encounter ID Performer Location Encounter Start Date Encounter Closed Date Diagnosis/Indication Diagnosis SNOMED-CT Code Diagnosis ICD10 Code Diagnosis Note [id number] STEW JERONIMO MD [facility] [address] [phone] 06/23/2024 08:52:57 06/23/2024 10:20:29 Loss of sense of smell 94611245 R43.0 Parkinson's disease 4904 9000 G20.A1 Health Concerns Section Related Observation LastModified by Organization Detai ls LastModified Time None Recorded Concern Status LastModified by Organization Details LastModified Time None Recorded Advance Directives Directive None Recorded Payers Insurance Date Sequence Insurance Name Policy Number Policy Blanc Covered Member ID Blanc Member ID Guarantor Name 06/23/2024 1 *SELF PAY* Do minick D Lucas 06/23/2024 1 [place] [id number] Rock D Lucas [id number] Rock D Lucas 06/23/2024 2 [place] [id number] Rock D Lucas [id number] Rock D Lucas 06/23/2024 1 [place] B[place] [facility] Rock D Lucas [id number] Rock D Lucas Notes Date Note Type Note Provider Name and Address Organization Details Recorded Time 06/23/2024 text/html Patient reports 6 months of loss of smell and taste. He reports his had COVID-19 about 9 months ago. He denies having any infection himself. He does have a history of Parkinson's disease and diabetes. No CP or SOB STEW BYRD MD [address] [place] [address], [phone], [place] - [facility] 06/23/2024 10:19:19
--- OUTSIDE RECORDS SUMMARY | 2025-06-16 12:03 | XMS_ITS | Clinical Summary ---
Author Organization [facility] Address [address] [place] [address] Care Team Providers Care Parts Counter Representative Name Role Phone Unavailable Primary Care Provider [...] 102 09/22/2022 9:47 AM EDT Temperature 36.7 C (98 F) 09/22/2022 4:37 AM EDT Respiratory Rate 18 [...] of 1 - PCV) 2024 COVID-19 Vaccine ( - 2023- season) 2024 09/06/2021, 02/09/2021, 01/19/2021 Influenza Vaccine (#1) 2025 , 09/25/2020, 08/04/2019, Additional history exists RSV Adult > 60+ Yrs or (1 - 1-dose 75+ series) 2034 Hepatitis B Vaccines Aged Out No long er eligible based on patient's age to complete this topic RSV Ped < 20 months Aged Out No longe r eligible based on patient's age to complete this topic Advance Directives For more information, please contact: [phone] Latest Code Status on File Code Status Date Activated Date Inactivated Comments Full Code 09/19/2022 2:37 PM 09/23/2022 12:01 AM Th is code status was ascertained in the following way: As per discussion with patient .
== END 2025-06-16 11:21 | disposition home or self-care (01) ==
LOC: HO.HSMS 11:01
PROVIDERS: PCP Family Medicine; Visit Provider Psychiatry & Neurology Neurology
DX: G25.2 Other specified forms of tremor (principal); R26.89 Other abnormalities of gait and mobility; R53.83 Other fatigue; G47.9 Sleep disorder, unspecified
CPT/HCPCS: 99214; G2211

== ENCOUNTER → 2025-06-16 11:00 | Outpatient (BNVA) | payer MEDICARE, SELFPAY | PROVIDERS: PCP Family Medicine; Visit Provider Psychiatry & Neurology Neurology | DX: G25.2 Other specified forms of tremor (principal); R26.89 Other abnormalities of gait and mobility; R53.83 Other fatigue; G47.9 Sleep disorder, unspecified | CPT/HCPCS: 99212 ==

== ENCOUNTER 2025-09-23 10:13 | Outpatient (AMB) | payer MEDICARE, SELFPAY ==
[2025-09-23 10:35] VITALS: BP 120/72; PULSE 87; O2SAT 99; BMI 24.4
--- NOTE | 2025-09-23 10:35 | A.OFFVIS_ITS ---
Vital Signs 09/23/25 10:35 Height 5 ft 8.5 in Weight 163 lb BMI 24.4 BP 120/72 Blood Pressure Location Rt brachial Position Sitting Pulse 87 Pulse Source Pulse Oximeter Pulse Oximetry (%) 99 Oxygen Delivery Method Room Air Intake Visit Reasons: 4 mo follow up Intake Note: Patient presents follow up Parkinson's. Patient states he is about the same. Accompanied by: Spouse Allergies No Known Allergies Allergy (Verified 09/23/25 10:43) HPI Comments Details: 65y/o r. handed male is here for a f/u of Parkinsons disease. His Miesha helps with history today. He is stable, denies seizure like activity, denies falls since last visit. He is doing well with current medications CD/LD 10/100 mg po TID. and Keppra 750mg po BID. His Tremors are well managed with Austedo 6mg po BID. Sleep has difficulty falling asleep, no trouble turning over in bed, his HST from 3 years ago was normal. Tremors coarse bilaterally worse when medication wears off in 5 hours, worse at night. He takes is at 8am and 4pm daily. He takes cd/ld tid, and understands to eat meat products 2 hours after this medication, or with fruits and vegetables such as bananas or cracker with a glass of water for best absorption of medication. 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 Dysphagia denies, has trouble chewing as he does not have upper incisors x 4 and this continues to impact his quality of life. He says he plans to see a dentist. He gets meals from meals on wheels daily. Denies drooling, choking or dysphagia to solids or liquids. Social acitivities He doesn't like to be around people as he feels overstimulated. He has a son in [place] who does research for [employer] and he visits him once a month. His mood is irritable, he ruminates, and says he starts to spiral, he has a therapist whom he sees ever 2 weeks, for anxiety. He is Indepent in all ADLs completes all his tasks with 's financial legal assistant, he can dress himself and bathe himself. He likes to do the bills as he likes to physically write checks, he does not like auto pay on the apps or devices. Mobility he walks with a cane as he continues to have gait and balance instability, he does not climb stairs. Constipation, takes miralax and has BM every 3 days with hard stools, does not drink enough water. His memory is poor, forgets numbers has difficulty with numbers, forgets task, appointments, and his reminds him, he does not drive anymore. Vision l. eye vegf - 24 year old blurry vision in left eye with dark spots, cataract surgery is pending. Hearing is stable. A/V Hallucinations denies. At [facility] the Psychiatrist manages Gabapentin 100mg TID and Keppra 750mg PO BID. History from initial visit- Both the patient and his are poor historians. According to the patient he was diagnosed with Parkinsons about 20 years ago . He started having tremors in his hands.He has h/o bipolar disorder, chronic back pain, opiod dependance CKD HTN CAD Diabetes, exposure to multiple neuroleptics. He was admitted at [facility] on 09/2023 for weakness - was suspected to have Parkinsons, started on carbidopa/levodopa which helped his tremors. He was also started on keppra for possible seizures. No further history was obtainable. He reports fh/o tremors and had a diagnosed of familial tremors until 09/2023 He is not sure if he is taking quetiapine. He denies seizure like episodes. He denies speech issues. But reports trouble walking, feeling off balance and forgetfullness. 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 CAD (coronary artery disease) Shortness of breath Ascending aorta dilatation Thrombosis of vein CKD (chronic kidney disease) Surgical History H/O cardiac catheterization History of appendectomy Previous back surgery H/O heart surgery Family History Father Stroke Social History Alcohol intake: never Patient Tobacco Use Status: Never used Tobacco Physical Exam Vital Signs: Last Vital Signs Pulse 87 09/23/25 10:35 BP 120/72 09/23/25 10:35 Pulse Ox 99 09/23/25 10:35 Oxygen Delivery Method Room Air 09/23/25 10:35 BMI result Body Mass Index 24.4 Const General: cooperative Nutritional Appearance: average body habitus Orientation/consciousness: patient oriented x3 Eyes Pupils: Equal, round and reactive pupils present Neck Neck: Yes no meningeal signs Neuro Other: moderate to high amplitude tremors - rest postural in UE and LE. Mild decreased blink Normal voice FFM and foot taps normal No cogwheel rigidity Gait- with cane normal stride mild wide base , normal posture. General: patient oriented x3 and no meningeal signs Cranial nerves: Yes Equal, round and reactive pupils present, Yes Bilaterally intact EOM present, Yes Nystagmus not present, Yes Normal facial strength present and Yes Midline tongue present Motor exam (neuro): 5/5 motor strength present throughout and Normal motor muscle tone present throughout Coordination: [id number] test normal Psych Appearance: well kempt Speech and movement: Psychomotor agitation in speech present Affect: Animated affect present Attitude: cooperative Thought content: Normal thought content present Insight: Fair insight present (Psych) Judgement: Fair judgement present (Psych) Results Reviewed Results Reviewed: Jul 2024 EEG normal continuous Eye Flutter, no seizure activity. MRI 2021 -Normal Brain MRI [facility], prominence of ventricles, noted with white matter changes and bilateral cereberal ischemia. Assessment & Plan Assessment & Plan (1) Coarse tremors: Comment: / drug induced parkinsonism, familial tremors Code(s): G25.2 - Other specified forms of tremor Category: Medical (2) Abnormality of gait due to impairment of balance: Code(s): R26.89 - Other abnormalities of gait and mobility Category: Medical (3) Fatigue due to sleep pattern disturbance: Code(s): R53.83 - Other fatigue; G47.9 - Sleep disorder, unspecified Category: Medical Plan Continue Austedo 6mg PO BID will evaluate to increase at next visit if tremors worsen. Fatigue due to sleep pattern disturbances, pt. declines HST today, will call the office back after giving it some thought. Continue CD / LD (sinemet) 10/100 1 tablet TID 7am, 12noon, and 8pm. Patient Education provided. Seizure prevention Continue Keppra 750mg PO BiD Continue Gabapentin 100mg PO TID Increase Primidone 50mg 1-1-2 tabs F/u in 3 months Medications: Changed From gabapentin 100 mg PO TID G25.2 - Other specified forms of tremor To gabapentin 100 mg PO TID 270 caps 0RF rest less legs 3 months MDD 100mg G25.2 - Other specified forms of tremor Refilled levetiracetam 750 mg PO BID 60 tabs 6RF deutetrabenazine (Austedo) 6 mg PO BID 60 tabs 6RF carbidopa-levodopa 10-100 mg Take on tablet daily three times a day for tremors, may take with a snack such as banana or crackers. 1 tab PO TID 270 tabs 1RF Tremors MDD 3 tablets G25.2 - Other specified forms of tremor Coding Level of Care Code Est Pt Level 4 (13408) Diagnoses Coarse tremors G25.2 Abnormality of gait due to impairment of balance R26.89 Fatigue due to sleep pattern disturbance R53.83; G47.9
--- OUTSIDE RECORDS SUMMARY | 2025-09-23 12:21 | XMS_ITS | Clinical Summary ---
Author Organization [facility] Address [address] [place] [address] Care Team Providers Care Rustic Fence Builder Name Role Phone Unavailable Primary Care Provider [...] - PCV) 2024 COVID-19 Vaccine ( - season) 2025 09/06/2021, 02/09/2021, 01/19/2021 Influenza Vaccine (#1) 2025 [...] Advance Directives For more information, please contact: [phone] Latest Code Status on File Code Status Date Activated Date Inactivated Comments Full Code 09/19/2022 2:37 PM 09/23/2022 12:01 AM Th is code status was ascertained in the following way: As per discussion with patient .
--- OUTSIDE RECORDS SUMMARY | 2025-09-23 12:21 | XMS_ITS | Encounter Summary ---
Author Organization [facility] Address [address] [place] [address] Care Team Providers Care Woodenware Assembler Name Role Phone Neda Whitman MD Primary Care Provider [phone] Encounter Details Date Type Department Care Team (Late st Contact Info) Description 08/31/2025 Results Follow-Up Internal Medicine - [address] [id number] Mary Yap NP [address] [place] [id number] Social History Tobacco Use Types Packs/Day Years Used Date Smoking Tobacco: Never Smokeless Tobacco: Never Alcohol Use Standard Drinks/Week Comments No 0 (1 standard drink = 0.6 oz pur e alcohol) Housing Instability Answer Date Recorde d Are you worried that in the next 2 months you may not have stable housing? No 03/12/2025 Food Access & Nutrition Answer Date Rec orded Do you have access to a vari ety of food including fruits and vegetables? Yes 03/12/2025 Health Literacy Answer Date Recorded How often do you need to hav e someone help you when you read instructions, pamphlets, or other written material from your doctor or pharmacy? Never 03/12/2025 Caregiver: How often do you need to have someone help you when you read instructions, pamphlets, or other written material from your doctor or pharmacy? Not on file 03/12/2025 Financial Risk Answer Date Recorded How hard is it for you to pa y for the very basics like food, housing, medical care, and air conditioning / heating? Not very hard 03/12/2025 Transportation Answer Date Recorded Has the lack of transportati on kept you from meetings, work, or from getting things needed for daily living? No Has the lack of transportati on kept you from medical appointments or from getting medications? No 03/12/2025 Social Isolation Answer Date Recorded How often do you feel lonely or isolated from th ose around you? Never 03/12/2025 Food Risk Answer Date Recorded Within the past 12 months we worried whether our food would run out before we got money to buy more. Never true 03/12/2025 Within the past 12 months th e food we bought just didn't last and we didn't have money to get more. Never true 03/12/2025 Dependent Care Answer Date Recorded Do you need help finding or paying for care for your loved ones. For example, childhood development teacher or elderly care for an older adult? No 03/12/2025 Education Answer Date Recorded Do you think completing more education or training, like finishing a GED, going to college, or learning a trade, would be helpful for you? No 03/12/2025 Employment and Income Answer Date Recor ded During the last four weeks, have you been actively looking for work? No 03/12/2025 Living Situation Answer Date Recorded What is your living situation? Unrecognized valu e 03/12/2025 Sex and Gender Information Value Date Recorded Sex Assigned at Not on file Legal Sex Male 11:45 PM EST Gender Identity Not on file Sexual Orientation Not on file documented as of this encounter Plan of Treatment Upcoming Encounters Date Type Department Care Team (Late st Contact Info) Description 11/16/2025 8:45 AM EST [facility] [address] [place] [address] Mary Yap NP [address] [place] [address] documented as of this encounter Visit Diagnoses Not on filedocumented in this encounter Additional Health Concerns Assessment Noted Time PHQ-9 Depression Total Score: 1 03/12/20 25 10:52 AM EDT documented as of this encounter Care Teams Woodenware Assembler Relationship Specialty Start Date End Date Neda Whitman MD [address] [place] [address] PCP - General Internal Medicine 07/21/25 documented as of this encounter
--- OUTSIDE RECORDS SUMMARY | 2025-09-23 12:21 | XMS_ITS | Clinical Summary ---
Author Organization [facility] Address [address] [place] [address] Phone Care Team Providers Care Transformation Analyst Name Role Phone Neda Whitman MD Primary Care Provider [phone] Allergies Active Allergy Reactions Criticality Noted Date Comments Benztropine Unknown 12/05/2022 Ceftriaxone 09/19/2022 Other reaction(s): Dizziness Hydromorphone 03/04/2018 sweating and hives nausous Lamotrigine Unknown 12/05/2022 Oxytocin 10/13/2021 Penicillins 12/11/2011 Medications levETIRAcetam (KEPPRA) 500 mg tablet Take 1 tablet (500 mg total) by mouth 2 (two) times a day. Active sildenafiL (VIAGRA) 50 mg tabletIndications: Erectile dysfunction, unspecified erectile dysfunction type Take 1 tablet (50 mg total) by mouth 1 (one) time each day if needed for erectile dysfunction . 12 tablet 3 11/10/20 24 025 Active carbidopa-levodopa (SINEMET) 10-100 mg per tablet Take 1 tablet by mouth 3 (three) times a day. 270 tablet 1 11/19/20 24 Active tamsulosin (FLOMAX) 0.4 mg 24 hr capsule Take 1 capsule (0.4 mg total) by mouth 1 (one) time each day. 03/02/20 25 026 Active amLODIPine (NORVASC) 5 mg tabletIndications: Primary hypertension TAKE 1 TABLET BY MOUTH 1 TIME EACH DAY. 90 tablet 1 04/20/20 25 Active famotidine (PEPCID) 40 mg tablet TAKE 1 TABLET BY MOUTH EVERY DAY 90 tablet 1 04/20/20 25 Active clopidogreL (PLAVIX) 75 mg tabletIndications: Mixed hyperlipidemia TAKE 1 TABLET BY MOUTH EVERY DAY 90 tablet 1 04/20/20 25 Active labetaloL (NORMODYNE) 200 mg tabletIndications: Primary hypertension TAKE 2 TABLETS BY MOUTH TWICE A DAY 360 tablet 1 04/20/20 25 Active Vitamin B-12 1,000 mcg tablet TAKE 1 TABLET (1,000 MCG TOTAL) BY MOUTH ONCE DAILY 90 tablet 1 07/09/20 25 Active gabapentin (NEURONTIN) 100 mg capsule Take 1 capsule (100 mg total) by mouth 3 (three) times a day. 270 each 1 07/14/20 25 026 Active lisinopril (PRINIVIL,ZESTRIL) 40 mg tabletIndications: Primary hypertension Take 1 tablet (40 mg total) by mouth 1 (one) time each day. 90 each 1 07/14/20 25 026 Active atorvastatin (LIPITOR) 40 mg tabletIndications: Mixed hyperlipidemia Take 1 tablet (40 mg total) by mouth at bedtime. at bedtime. 90 each 1 07/14/20 25 026 Active metFORMIN (GLUCOPHAGE) 500 mg tabletIndications: Type 2 diabetes mellitus without complication, without long-term current use of insulin ([facility] V24, [facility] V28) Take 1 tablet (500 mg total) by mouth 2 (two) times a day with meals. 180 each 1 07/14/20 25 026 Active magnesium oxide (MAG-OX) 400 mg (241.3 elemental magnesium) tablet TAKE 1 CAPSULE BY MOUTH 2 TIMES DAILY FOR 360 DAYS. 180 tablet 1 08/31/20 25 Active magnesium oxide (MAG-OX) 400 mg (241.3 elemental magnesium) tablet TAKE 1 TABLET BY MOUTH 2 TIMES DAILY FOR 360 DAYS. 180 tablet 1 03/12/20 25 025 Discontinued Active Problems Problem Noted Date Diagnosed Date Stroke, small vessel ([facility] V24, [facility] V28) 09/20/2022 Dizziness 09/19/2022 Transient ischemic attack 11/25/2021 Encounters Date Type Department Care Team Description 08/31/2025 Results Follow-Up [facility] Medicine - [facility] [address] [place] [phone] Mary Yap NP 07/14/2025 9:30 AM EDT Office Visit Internal Medicine - [facility] [address] [facility] [address] [place] [phone] Mary Yap NP Parkinson's disease, unspecified whether dyskinesia present, unspecified whether manifestations fluctuate ([facility] V24, [facility] V28) (Primary Dx); Seizure ([facility] V24, [facility] V28); Primary hypertension; Type 2 diabetes mellitus without complication, without long-term current use of insulin ([facility] V24, [facility] V28); Mixed hyperlipidemia; B12 deficiency from Last 3 Months Surgical History Surgery Date Site/Laterality Comments APPENDECTOMY PROCEDURE: RI APPENDECTOMY CHOLECYSTECTOMY PROCEDURE: RI LAPAROSCOPY SURG CHOLECYSTECTOMY STENT CAROTID N/A 2021 SPINE SURGERY N/A L1 removed KNEE ARTHROSCOPY W/ DEBRIDEMENT Bilateral Medical History Medical History Date Comments Acne rosacea 02/28/2016 DX:Acne rosacea Benign familial tremor 02/17/2018 DX:Benign familial tremor Benign prostatic hyperplasia 10/20/2013 DX: Benign prostatic hyperplasia Bipolar disorder ([facility] V2 4, [facility] V28) 02/09/2014 DX:Bipolar disorder ([facility]) Chronic constipation 02/28/2016 DX:Chronic constipation DDD (degenerative [...] disorder 06/09/2018 DX:Movement di sorder Opioid dependence, continuou s ([facility] V24, [facility] V28) 02/27/2018 DX:Opioid dependence, contin uous ([facility]) Polyp of sigmoid colon 02/10/2015 DX:Polyp of sigmoid colon Radial styloid tenosynovitis (de quervain) 02/27/2018 DX:Radial styloid tenosynovi tis (de quervain) Spondylosis, lumbosacral 02/27/2018 DX:Spon dylosis, lumbosacral Steatohepatitis, non-alcoholic 06/12/2017 D X:Steatohepatitis, non-alcoholic Type 2 diabetes mellitus wit h peripheral vascular disease (CMS/HCC V24, CMS/HCC V28) 08/18/2018 DX:Type 2 diabetes mellitus with peripheral vascular disease ([facility]) Anxiety state DX:Anxiety state Asthma DX:Asthma Family History Medical History Relation Name Comments Other Father intestinal prob lems Coronary artery disease Mother No Known Problems Sister No Known Problems Son Relation Name Status Comments Father Mother Alive Sister x3 1 f rom Covid Son Alive Social History Tobacco Use Types Packs/Day [...] care for your loved ones. For example, child health associate or elderly care for an older adult? [...] Sign Reading Time Taken Comments Blood Pressure 140/84 07/14/2025 9:44 AM EDT Pulse 72 07/14/2025 9:29 AM EDT Temperature - - Respiratory Rate - - Oxygen Saturation - - Inhaled Oxygen Concentration - - Weight 74 kg (163 lb 3.2 oz) 07/14/2025 9:29 AM EDT Height 175.3 cm (5' 9 ) 03/24/2025 10:05 AM EDT Body Mass Index 24.1 03/24/2025 10:05 AM EDT Plan of Treatment Upcoming Encounters Date Type Department Care Team (Late st Contact Info) Description 11/16/2025 8:45 AM EST Office Visit Internal Medicine - [address] [phone] Mary Yap NP [address] [place] [address] Health Maintenance Due Date Last Done Comments Colorectal Cancer Screening: Colonoscopy 1960 Hepatitis A Vaccines (1 of 2 - Risk 2-dose series) 1978 RSV Immunization Adult Patients (1 - Risk 50-74 years 1-dose series) 2009 Hepatitis B Vaccines (1 of 3 - Risk 3-dose series) 2019 Hepatitis C Screening 10/28/2022 COVID-19 Vaccine ( - season) 2025 08/28/2024, 09/18/2022, 09/06/2021, Additional history exists Influenza Vaccine (#1) 2025 , 08/12/2023, 09/18/2022, Additional history exists Diabetes: Annual Retina Eye Exam 01/19/2026 01/19/2025, 01/18/2025, 11/10/2024 Diabetes: Blood Sugar Control Test (HGBA1C) 02/28/2026 08/30/2025, 08/30/2025, 06/04/2025, Additional history exists Falls Risk Assessment 03/12/2026 03/12/2025 Medicare Annual Wellness Visit 03/12/2026 03/12/2025 Social Influencers of Health Screening 03/12/2026 03/12/2025 Diabetes: Annual Urine Albumin-Creatinine Ratio (uACR) 06/04/2026 06/04/2025, 06/04/2025, 02/26/2025, Additional history exists Diabetes: Annual Foot Exam 07/14/2026 07/14/2025 Diabetes: Annual GFR (Glomerular Filtration Rate) 08/30/2026 08/30/2025, 06/04/2025, 02/26/2025, Additional history exists Hypertension/CHF/CAD Annual BMP Blood Test 08/30/2026 08/30/2025, 06/04/2025, 02/26/2025, Additional history exists Cholesterol Screening (Lipid Panel) 11/10/2029 11/10/2024, 09/20/2022, 09/20/2022, Additional history exists DTaP,Tdap,and Td Vaccines (4 - Td or Tdap) 08/21/2033 08/21/2023, 02/18/2023, 12/13/2011 Pneumococcal Vaccine: 50+ Years Completed 05/13/2024, 02/18/2023 Zoster Vaccines Completed 08/28/2024, 05/01/2024 Depression Screening Completed 03/12/2025 HIB Vaccines Aged Out No longer eligi [...] age to complete this topic Meningococcal B Vaccine Aged Out No l onger eligible based on patient's age to complete this topic RSV Immunization Patients Under 20 months Aged Out No longer eligible based on patient's age to complete this topic Varicella Vaccines Aged Out No longer eligible based on patient's age to complete this topic Procedures Procedure Name Priority Date/Time Associated Diagnosis Comments VITAMIN B12 Routine 08/30/2025 3:29 PM EDT B12 deficiency RENAL FUNCTION PANEL Routine 08/30/2025 3:29 PM EDT Chronic kidney disease, stage 3a (CMS/HCC V24, CMS/HCC V28) Type 2 diabetes mellitus with other diabetic kidney complication (CMS/HCC V24, CMS/HCC V28) PROTEIN AND CREATININE WITH RATIO, URINE Routine 08/30/2025 3:29 PM EDT Chronic kidney disease, stage 3a (CMS/HCC V24, CMS/HCC V28) Type 2 diabetes mellitus with other diabetic kidney complication (CMS/HCC V24, CMS/HCC V28) MAGNESIUM Routine 08/30/2025 3:29 PM EDT Chronic kidney disease, stage 3a (CMS/HCC V24, CMS/HCC V28) Type 2 diabetes mellitus with other diabetic kidney complication (CMS/HCC V24, CMS/HCC V28) HEMOGLOBIN A1C Routine 08/30/2025 3:29 PM EDT Chronic kidney disease, stage 3a (CMS/HCC V24, CMS/HCC V28) Type 2 diabetes mellitus with other diabetic kidney complication (CMS/HCC V24, CMS/HCC V28) URIC ACID Routine 08/30/2025 3:29 PM EDT Chronic kidney disease, stage 3a ([facility] V24, [facility] V28) Type 2 diabetes mellitus with other diabetic kidney complication ([facility] V24, [facility] V28) MICROALBUMIN CREATININE URINE RATIO Routine 06/04/2025 9:17 AM EDT Chronic kidney disease (CKD) stage G3a/A1, moderately decreased glomerular filtration rate (GFR) between 45-59 mL/min/1.73 square meter and albuminuria creatinine ratio les* ([facility] V24, [facility] V28) EXTERNAL DIABETIC RETINA EYE EXAM 01/19/2025 LIPID PANEL WITH REFLEX TO DIRECT LDL Routine 11/10/2024 3:38 PM EST Mixed hyperlipidemia from Last 3 Months or Most Recently Relevant to Health Maintenance Results * (ABNORMAL) Protein and creatinine with ratio, urine (08/30/2025 3:29 PM EDT) Protein, Urine 27 mg/dL LAB CHEMISTRY METHOD 08/30/2025 7:03 PM EDT [facility] Prot/Creat, Ur 0.38(H) <=0.20 mg/mg creat LAB CHEMISTRY METHOD 08/30/2025 7:03 PM EDT [facility] Creatinine, Urine 72.0 mg/dL LAB CHEMISTRY METHOD 08/30/2025 7:03 PM EDT [facility] Urine Urine specimen obtained by clean catch procedure / Unknown Non-blood Collection / Unknown 08/30/2025 3:29 PM EDT 08/30/2025 3:29 PM EDT us Bipin Newberry MD LAB URINE ORDERABLES Final Result [facility] [address] [place] [address], [place] [phone] * Uric acid (08/30/2025 3:29 PM EDT) Pathologist [facility] Uric Acid 4.4 3.7 - 9.2 mg/dL LAB CHEMISTRY METHOD 08/30/2025 6:34 PM EDT [facility] Blood Venous blood specimen / Unknown Venipuncture / Unknown 08/30/2025 3:29 PM EDT 08/30/2025 3:29 PM EDT us Bipin Newberry MD LAB BLOOD ORDERABLES Final Result Performing Organization Address City/[facility]/ZIP Co de Phone Number [facility] [address] [place] [address], [place] [phone] * Magnesium (08/30/2025 3:29 PM EDT) [facility] Magnesium 2.0 1.9 - 2.6 mg/dL LAB CHEMISTRY METHOD 08/30/2025 6:34 PM EDT [facility] Blood Venous blood specimen / Unknown Venipuncture / Unknown 08/30/2025 3:29 PM EDT 08/30/2025 3:29 PM EDT us Bipin Newberry MD LAB BLOOD ORDERABLES Final Result Performing Organization Address City/[facility]/ZIP Co de Phone Number [facility] [address] [place] [address], [place] [phone] * (ABNORMAL) Hemoglobin A1c (08/30/2025 3:29 PM EDT) [facility] Hemoglobin A1C 6.5(H) <6.5 % LAB CHEMISTRY METHOD 08/30/2025 9:39 PM EDT [facility] Mean Bld Glu Estim. 140 mg/dL LAB CHEMISTRY METHOD 08/30/2025 9:39 PM EDT [facility] Blood Venous blood specimen / Unknown Venipuncture / Unknown 08/30/2025 3:29 PM EDT 08/30/2025 3:29 PM EDT Bipin Newberry MD LAB BLOOD ORDERABLES Final Result Performing Organization Address [facility]/ZIP Co de Phone Number [facility] [address] [place] [address], [place] [phone] * (ABNORMAL) Vitamin B12 (08/30/2025 3:29 PM EDT) [facility] Vitamin B-12 971(H) 250 - 900 pcg/mL LAB CHEMISTRY METHOD 08/30/2025 6:59 PM EDT [facility] Blood Venous blood specimen / Unknown Venipuncture / Unknown 08/30/2025 3:29 PM EDT 08/30/2025 3:29 PM EDT Mary Yap NP LAB BLOOD ORDERABLES Final Resul t Performing Organization Address [facility]/ZIP Co de Phone Number [facility] [address] [place] [address], [place] [phone] * (ABNORMAL) Renal function panel (08/30/2025 3:29 PM EDT) [facility] Sodium 140 133 - 145 mmol/L LAB CHEMISTRY METHOD 08/30/2025 6:34 PM EDT [facility] Potassium 4.3 3.5 - 5.5 mmol/L LAB CHEMISTRY METHOD 08/30/2025 6:34 PM EDT [facility] Chloride 107 96 - 110 mmol/L LAB CHEMISTRY METHOD 08/30/2025 6:34 PM EDT [facility] CO2 24 21 - 32 mmol/L LAB CHEMISTRY METHOD 08/30/2025 6:34 PM EDT [facility] Anion Gap 9 3 - 11 LAB CHEMISTRY METHOD 08/30/2025 6:34 PM EDT [facility] Glucose 143(H) 70 - 100 mg/dL LAB CHEMISTRY METHOD 08/30/2025 6:34 PM EDT [facility] BUN 23 5 - 25 mg/dL LAB CHEMISTRY METHOD 08/30/2025 6:34 PM EDT [facility] Creatinine 1.18 0.70 - 1.30 mg/dL LAB CHEMISTRY METHOD 08/30/2025 6:34 PM T [facility] eGFR 68 >=60 mL/min/1. 73m2 LAB CHEMISTRY METHOD 08/30/2025 6:34 PM EDT [facility] Comment:Calculation based on the Chronic Kidney Disease Epidemiology Collaboration (CKD-EPI) equation refit without adjustment for race. BUN/Creatinine Ratio 19.5 LAB CHEMISTRY METHOD 08/30/2025 6:34 PM [facility] Albumin 3.9 3.2 - 5.0 g/dL LAB CHEMISTRY METHOD 08/30/2025 6:34 PM [facility] Calcium 9.2 8.5 - 10.5 mg/dL LAB CHEMISTRY METHOD 08/30/2025 6:34 PM [facility] Phosphorus 3.4 2.5 - 4.5 mg/dL LAB CHEMISTRY METHOD 08/30/2025 6:34 PM [facility] Blood Venous blood specimen / Unknown Venipuncture / Unknown 08/30/2025 3:29 PM EDT 08/30/2025 3:29 PM EDT us Bipin Newberry MD LAB BLOOD ORDERABLES Final Result [facility] [address] [place] [address], * (ABNORMAL) Microalbumin creatinine urine ratio (06/04/2025 9:17 AM EDT) Creatinine, Urine 78.0 mg/dL LAB CHEMISTRY METHOD 06/04/2025 12:29 PM EDT [facility] Microalb, Ur 44.5(H) 0.0 - 29.0 mg/L LAB CHEMISTRY METHOD 06/04/2025 12:29 PM EDT [facility] Microalb/Crea t Ratio 57(H) <30 mg/g creat LAB CHEMISTRY METHOD 06/04/2025 12:29 PM EDT [facility] Urine Urine specimen obtained by clean catch procedure / Unknown Non-blood Collection / Unknown 06/04/2025 9:17 AM EDT 06/04/2025 9:17 AM EDT Bipin Newberry MD LAB URINE ORDERABLES Final Result [facility] [address] [place] [address], [place] [phone] * External Diabetic Retina Eye Exam Report (01/19/2025) Anatomical Region Laterality Modality Ultrasound us Provider Onbase IMG US PROCEDURES Final Resul t * Lipid panel with reflex to direct LDL (11/10/2024 3:38 PM EST) Cholesterol 122 0 - 200 mg/dL LAB CHEMISTRY METHOD 11/10/2024 6:50 PM [facility] Triglycerides 147 0 - 150 mg/dL LAB CHEMISTRY METHOD 11/10/2024 6:50 PM EST [facility] HDL 44 >=40 mg/dL LAB CHEMISTRY METHOD 11/10/2024 6:50 PM [facility] LDL Calculated 49 0 - 100 mg/dL LAB CHEMISTRY METHOD 11/10/2024 6:50 PM EST [facility] VLDL Cholesterol Kwasi 29.4 mg/dL LAB CHEMISTRY METHOD 11/10/2024 6:50 PM [facility] Non HDL Chol. (LDL+VLDL) 78 <145 mg/dL LAB CHEMISTRY METHOD 11/10/2024 6:50 PM EST [facility] Chol/HDL Ratio 2.8 0.0 - 4.4 LAB CHEMISTRY METHOD 11/10/2024 6:50 PM EST [facility] Blood Venous blood specimen / Unknown Venipuncture / Unknown 11/10/2024 3:38 PM EST 11/10/2024 3:38 PM EST us Mary Yap NP LAB BLOOD ORDERABLES Final Resul t [facility] [address] [place] [address], [place] [phone] from Last 3 Months or Most Recently Relevant to Health Maintenance Insurance MEDICARE [facility] Advance Directives Documents on File Type Date Recorded Patient Welfare Service Aide Expl anation Health Care Decision (hx) 10/14/2023 [...] (hx) 05/30/2020 AD MORALES DIRECTIVE Care Teams Transformation Analyst Relationship Specialty Start Date End Date Neda Whitman MD [address] [place] [phone] PCP - General Internal Medicine 07/21/25
--- OUTSIDE RECORDS SUMMARY | 2025-09-23 12:21 | XMS_ITS | Data Portability ---
Author Organization [place] - [facility], Allergy Address [address] [address] Care Team Providers Care Claims Sorter Name Role Phone DANIEL RAMIRES Primary Care [...] He believes he had additional studies at [facility] [place] in [place]. However, will be called over there there [...] Recorded Time Loss of sense of smell [id number] Active 024 STEW JERONIMO MD [address] [facility],[place] [address], [place], [phone] , [facility] 06/23/2024 09:53:13 Parkinson 's disease [id number] Active 024 STEW JERONIMO MD [address] [facility], [place], [place], [phone] , [facility] 06/23/2024 09:53:17 Problem Notes None recorded. [...] Updated DateTime 06/23/2024 172.72 cm 23.7 kg/m2 64873.41 g Jm Cheung [place] - [facility] 06/23/2024 09:37:02 Social History None recorded. Functional Status None recorded. Mental Status None recorded. Family History Nothing Reported. Medical History Condition Response Diabetes Y Migraines Y Anxiety Y Hypertension Y Past Encounters Encounter ID Performer Location Encounter Start Date Encounter Closed Date Diagnosis/Indication Diagnosis SNOMED-CT Code Diagnosis ICD10 Code Diagnosis IMO Codes Diagnosis Note [id number] STEW JERONIMO MD [facility] [address] [phone] 06/23/2024 08:52:57 06/23/2024 10:20:29 Loss of sense of smell 82212386 R43.0 Parkinson's disease 4904 9000 G20.A1 Health [...] Lucas 06/23/2024 1 [place] [id number] Rock D Lucas [id number] Rock D Lucas 06/23/2024 2 [place] [id number] Rock D Lucas [id number] Rock D Lucas 06/23/2024 1 [place] [employer] Rock D Lucas [id number] Rock D Lucas Notes Date Note Type Note Provider Name and Address Organization Details Recorded Time 06/23/2024 text/html ROS as noted in the HPI Patient reports 6 months of loss of smell and taste. He reports his had COVID-19 about 9 months ago. He denies having any infection himself. He does have a history of Parkinson's disease and diabetes. No CP or SOB STEW BYRD MD [address] [place] [address], [place], [phone], [place] - [facility] 06/23/2024 10:19:19
== END 2025-09-23 11:35 | disposition home or self-care (01) ==
LOC: HO.HSMS 10:13
PROVIDERS: PCP Internal Medicine; Visit Provider Physician Assistant Medical
DX: G25.2 Other specified forms of tremor (principal); R26.89 Other abnormalities of gait and mobility; R53.83 Other fatigue; G47.9 Sleep disorder, unspecified
CPT/HCPCS: 99214

== ENCOUNTER → 2025-09-23 10:13 | Outpatient (BNVA) | payer MEDICARE, SELFPAY | PROVIDERS: PCP Internal Medicine; Visit Provider Physician Assistant Medical | DX: G25.2 Other specified forms of tremor (principal); R26.89 Other abnormalities of gait and mobility; R53.83 Other fatigue; G47.9 Sleep disorder, unspecified | CPT/HCPCS: 99212 ==